=== PATIENT | female | born 1955 | race Caucasian/White ===

== ENCOUNTER 2017-12-17 13:26 | Inpatient (IN) | payer MEDICARE, MEDICAID, SELFPAY ==
[2017-12-17] VITALS (10 sets, daily range): BP systolic 115–159; BP diastolic 69–92; PULSE 86–107; RESP 16–24; TEMP 36.8–37.1; O2SAT 91–97; BMI 30.4; BMI 37.0
--- NOTE | 2017-12-17 13:50 | RAD_ITS ---
STUDY: X-RAY CHEST REASON FOR EXAM: Female, 62 years old. Cough. TECHNIQUE: Frontal and lateral views of the chest. COMPARISON: October 02, 2017 FINDINGS: There is stable low volume inspiration. There is no demonstrated pleural abnormality. There is borderline cardiomegaly unchanged. Normal mediastinum and emili. Normal visualized pulmonary arteries. Normal visualized aortic arch and descending thoracic aorta. Normal visualized thoracic spine. Normal visualized ribs, clavicles, and shoulders. There is no demonstrated abnormality of the visualized soft tissue structures of the upper abdomen. RAD/Chest PA and Lateral IMPRESSION: Stable appearance of the chest with no acute pathology. Electronically Signed: Escobar Valencia MD at 14:59 EDT , Service support ,
--- NOTE | 2017-12-17 13:52 | ED.VISSUMM ---
- ER Visit Summary Date of Service: 12/17/17 Chief Complaint: Fall History of Present Illness: The patient is a 62 F who presents after a fall today. Patient states she tripped and fell backwards. EMS reports that the patient was laying beside her walker that was tipped over. EMS also reports that there were blankets by her feet. It appeared as though the blankets caused her to trip and fall. Patient denies any head injury or loss of consciousness. Patient admits to some pain in her lower back. Patient denies any paresthesias or weakness. Patient denies any shortness of breath but admits to a cough. Patient denies any chest pain. Patient denies any nausea or vomiting. Patient states her back pain is worse with any movement. Physical Examination: Vital signs are stable. Patient is afebrile. Patient is in no acute distress. Patient is awake and alert. Patient answers questions appropriately. Oral mucosa is pink and moist. Neck is supple. Trachea is midline. There is no JVD or lymphadenopathy appreciated. Heart was regular rate and rhythm. Lungs showed slight expiratory wheezing. Respiratory effort was limited. There were no retractions noted. Abdomen is soft. Bowel sounds are normal. There is no tenderness noted. Extremities were intact. There is some mild tenderness over the ankles. There is no edema noted. Pedal pulses are equal bilaterally. Cranial nerves II through XII are intact. There are no focal motor or sensory deficits noted. There is tenderness over the lower lumbar spine and paraspinal muscles. There is no edema or ecchymosis. There is no bony crepitance or step-off. Patient was able to sit up to 90?. Test Results: X-rays the lumbar spine were obtained. There is no acute fracture or spondylolisthesis noted. Chest x-ray was obtained. There is no acute cardiopulmonary process noted. CBC, metabolic profile, and urinalysis were obtained and were essentially within normal limits. Emergency Department Course and Treatment: Patient felt better on reevaluation. Ambulation with a walker was attempted. Patient was unable to ambulate even with a walker. Nursing staff reports the patient does have some excoriations in her inguinal and perineal areas and is not able to care for herself at home. Disposition: Admit to hospital Impression: Inability to ambulate and care for herself This note was generated with [employer]ation software. It may contain incorrect words, spelling, and punctuation that were not noted in review of the chart prior to signing ED Disposition - Plan for ED Patient: Disposition: Acute Care Hospital [facility] Chief Complaint: Fall Diagnosis: Physical deconditioning Referrals: Care Physician,No Primary [NON-STAFF] -
--- NOTE | 2017-12-17 13:55 | RAD_ITS ---
STUDY: X-RAY - LUMBAR SPINE REASON FOR EXAM: Female, 62 years old. Low back pain TECHNIQUE: 3 view(s) of the lumbar spine were obtained. COMPARISON: None FINDINGS: Normal lumbar lordosis. There is no substantial scoliosis. There is a normal alignment of the vertebrae. Normal vertebral bodies and endplates. Normal disc space heights. There is mild diffuse facet sclerosis. The soft tissue structures are unremarkable. RAD/Lumbar Spine 2 or 3 Views IMPRESSION: No acute abnormality of the lumbar spine. Electronically Signed: Escobar Valencia MD at 14:59 EDT , Service support ,
[2017-12-17] MEDS: 0.9% Normal Saline 1,000 ML 1000 ML IV (14:14)
[2017-12-17] MEDS: Ipratropium/Albuterol Sulfate 3 ML AMPUL.NEB INHALATION (14:15)
[2017-12-17 14:16] LABS: Absolute Lymphocyte Count 0.52 X10^3/ul (0.83-4.51); Absolute Neutrophil Count 4.2 X10^3/uL (2.0-7.7); Basophil# 0.02 X10^3/uL; Basophil% 0.4 % (0-1); Eosinophil# 0.03 X10^3/uL; Eosinophils% 0.5 % (0-5); Hematocrit 45.5 % (37-47); Hemoglobin 14.7 g/dl (12.0-15.0); Lymphocyte # 0.52 X10^3/ul (4.0); Lymphocyte % 9.5 % (19-41); Mean Corp Hgb Conc 32.3 g/gl (32-36); Mean Corpuscular Hgb 29.4 pg (27.0-32.0); Mean Platelet Vol. 11.1 fl (6.2-12.0); Monocyte% 12.7 % (0-10); Neutrophil # 4.22 X10^3/uL (2.7-7.7); Neutrophil % 76.7 % (47-70); Platelet Count 191 K/mm3 (150-450); RBC Distribution Width CV 14.1 % (11.6-14.6); RBC Distribution Width SD 46.7 fl (35.1-43.9); White Blood Count 5.5 K/mm3 (4.4-11.0)
[2017-12-17 14:17] LABS: Differential Indicated SCAN CRITERIA MET; POSITIVE COUNT NO; POSITIVE DIFFERENTIAL YES; POSITIVE MORPHOLOGY NO
[2017-12-17 14:33] LABS: Anion Gap 9 (5-15); BUN 14 mg/dL (7-18); Calcium,Total 8.8 mg/dL (8.5-10.1); Chloride 106 mmol/L (98-107); Creatinine, Serum 0.78 mg/dL (0.55-1.02); EST Glomerular Filtration Rate 80 mL/min (>60); Est Glom Filt Rate - Afr Amer 97 mL/min (>60); Estimated Creatinine Clearance 77.37 ml/min; Glucose 107 mg/dL (74-106); Potassium 3.8 mmol/L (3.5-5.1); Sodium Level 141 mmol/L (136-145)
[2017-12-17 14:41] LABS: Bacteria 0 SEEN /hpf (None Seen); Mucous, Urine 0 SEEN /hpf (<or=2+); Red Blood Cells-Urine 0 SEEN /hpf (0-5); White Blood Cells 0 SEEN /hpf (0-5)
[2017-12-17 14:44] LABS: Color, Urine Yellow (Yellow); Glucose, Dipstick Normal (Normal); Ketone-Dipstick 50 mg/dl (Negative); Leukocyte Esterase-Dipstick 25 /ul (Negative); Nitrite-Dipstick Negative (Negative); Occult Blood-Urine 10 /ul (Negative); Protein-Dipstick 30 mg/dl (Negative); Urine Clarity Clear (Clear); Urine Urobilinogen 1 mg/dl (Normal)
[2017-12-17 14:46] LABS: Urine Bilirubin Dipstick 1 mg/dL (Negative)
[2017-12-17 14:54] LABS: Squamous Epithelial Cells - UA 0-5 SEEN /hpf (5-10)
--- NOTE | 2017-12-17 16:35 | HP.PCM_ITS ---
<Lee Wahl - Last Filed: 12/17/17 16:23> Problem List (1) Debility, unspecified Status: Acute (2) Dementia, vascular Status: Chronic (3) Hyperlipidemia Status: Chronic (4) COPD (chronic obstructive pulmonary disease) Status: Chronic (5) Obesity Status: Chronic History of Present Illness Date of Admission: 12/17/17 Chief Complaint: weakness, fall The patient is a 62 year old F with severe vascular dementia, hx of COPD, HLD, non-small cell lung CA in remission, who presents to the ER after falling at home. She is a very poor historian from the dementia and family is not present, so much of the history is obtained from the charts, and provider reports. She lives with her daughter at home. She fell today while walking with her walker. Supposedly the grand daughter found her and called EMS. She was found on the floor with the walker toppled over and blankets spread around her. She did not remember how she fell. She complains of right leg pain across the whole leg. She feels well otherwise. She is answers most questions inapropriately but does answer no to other symptoms such as chest pain, headache, sob, dizziness, lightheadedness however this is unreliable. It would appear she has been admitted with failure to thrive and has been discharged to halfway in the past, most recently in September of this year. The nursing staff attempted to ambulate the patient in the ED, she could stand with 2 assist but could not walk with assist. Call was attempted to patient's daughter who did not answer. [] Past Medical History Past Medical History (Chronic Problems): Chronic Problems Failure to thrive in adult (Chronic) Hyperlipidemia (Chronic) Overactive bladder (Chronic) Glaucoma (Chronic) COPD (chronic obstructive pulmonary disease) (Chronic) Non-small cell lung cancer (Chronic) treated by chemo and radiation considered cured.....had mets to the brain and the brain was irradiated Cerebral microvascular disease (Chronic) severe Dementia, vascular (Chronic) Obesity (Chronic) Nodule of right lung (Chronic) stable Allergies adhesive tape Allergy (Verified 12/17/17 14:06) Rash codeine Allergy (Verified 12/17/17 14:06) Nausea Penicillins Allergy (Verified 12/17/17 14:06) Rash Home Medications: Ambulatory Orders Medication Instructions Recorded Aspirin 81 mg PO DAILY 10/02/17 Donepezil HCl 10 mg PO QHS 10/02/17 Fluticasone/Vilanterol [Breo 1 each IH DAILY 10/02/17 Ellipta 200-25 Mcg INH] Latanoprost 0.005% [Xalatan 1 drop EACH EYE QHS 10/02/17 Opthalmic] Oxybutynin Chloride [Ditropan Xl] 5 mg PO DAILY 10/02/17 Potassium Chloride 20 meq PO BID 10/02/17 Pravastatin Sodium 40 mg PO DAILY 10/02/17 Surgical History: cholecystectomy, hysterectomy, - - port for chemo, possible resection of lung in 2001 when diagnosed with non small cell lung CA Psychiatric History: No pertinent psych hx [employer]ER [employer] UN[employer]ER History: No pertinent [employer] history Lives: With Family Smoking Status: Unknown if ever smoked Tobacco Use: Non-smoker Alcohol: None Drugs: None - *Family History Maternal History Items: Unknown - Patient unable to provide family health information. Paternal History Items: No pertinent history - Patient unable to provide family health information. Review of Systems Constitutional: Denies: Chills, Fever, Weight Change HEENT: Denies: Head Aches, Sinus Congestion, Sinus Drainage Cardiovascular: Denies: Chest Pain, Palpitations Respiratory: Denies: Cough, Shortness of breath at rest, Sputum production Gastrointestinal: Denies: Abdominal Pain, Nausea, Vomiting Genitourinary: Denies: Dysuria Musculoskeletal: Denies: Joint Pain, Joint Tenderness Skin: Denies: Rash, Wounds Neurological: Denies: Numbness, Tingling, Focal weakness Psychiatric: Denies: Anxiety, Depression, Homicidal Ideations, Suicidal Ideations Hematologic/ Lymphatic: Denies: Easy Bruising, Easy Bleeding Unable to obtain accurate/complete ROS d/t: ROS unreliable 2/2 patient severe dementia VTE Information - Inpt Only VTE Present on Admission: No VTE Mechan Device Prophylaxis: SCD's VTE Pharm Prophylaxis ordered?: Yes Patient Problems: Active and Suspected Problems Physical deconditioning (Acute) Debility, unspecified (Acute) - Physical Exam General: Alert, Oriented x3, Cooperative HEENT: Atraumatic, PERRLA, EOMI, Normocephalic Neck: Supple, No JVD, Negative Carotid Bruits Lungs: Clear to auscultation, Normal air movement Cardiovascular: Regular rate, No murmurs Abdomen: Bowel Sounds Present, Soft, Non Tender Extremities: No edema, Capillary Refill Less than 3 Seconds Skin: No rashes, No breakdown Musculoskeletal: No Tenderness to Palpation of Joints or Extremities, - - weakness BLE Neurological: Cranial nerves II-XII grossly intact Psych/Mental Status: Normal Affect, Appropriate Vital Signs Temp Pulse Resp BP Pulse Ox 98.5 F 93 19 H 147/80 H 93 12/17/17 13:27 12/17/17 16:10 12/17/17 16:10 12/17/17 16:10 12/17/17 16:10 Assessment/Plan Active and Suspected Problems Physical deconditioning (Acute) Debility, unspecified (Acute) 1. Debility/Weakness - last 2 admissions for weakness/failure to thrive. Was in Skilled but presented from home. She fell at home while ambulating with walker under unclear circumstances. Pt will be admitted and given supportive care and PTOT evals. Likely needs placed with plan for transition to assisted living or ECF. Blood work unremarkable, VSS, UA negative. XR lumbar spine negative. CXR neg. S/W consult for care planning. 2. Vascular Dementia - severe. Pt A/O to self only. 3. COPD - currently stable. prn aerosols, continue daily home aerosols 4. Hx Non-small cell lung CA - in remission s/p chemo/rads 5. HTN - trend 6. HLD - statin DVT ppx: lovenox DC planning: Needs placement, needs 24 hour care. This patient was seen by Lee Wahl PA-C under the supervision of Doctor Amos. <Cindy Trinidad - Last Filed: 12/18/17 07:35> History of Present Illness The patient is a 62 year old F [] Past Medical History Allergies adhesive tape Allergy (Verified 12/17/17 14:06) Rash codeine Allergy (Verified 12/17/17 14:06) Nausea Penicillins Allergy (Verified 12/17/17 14:06) Rash - Physical Exam Vital Signs Temp Pulse Resp BP Pulse Ox 99.6 F H 97 20 H 98/54 L 93 12/18/17 06:45 12/18/17 07:06 12/18/17 06:45 12/18/17 06:45 12/18/17 06:45 Oxygen Flow Rate (L/min) 2.5 Oxygen Delivery Method Nasal Cannula Weight: 97.8 kg Body Mass Index (BMI) 37.0 Intake and Output for Last 24 Hours 12/16/17 12/17/17 12/18/17 23:59 23:59 23:59 Intake Total 1240 / 1240 220 / 220 Balance 1240 / 1240 220 / 220 Microbiology Past 72 Hours 12/18/17 04:05 Influenza Types A,B Direct FA (TAYLOR) - Final Mucosa - Nose Laboratory Tests Past 24 Hrs 12/18/17 12/18/17 05:08 05:08 WBC 5.0 RBC 4.67 Hgb 13.4 Hct 43.1 MCV 92.3 MCH 28.7 MCHC 31.1 L RDW 14.4 RDW Differential 48.4 H Plt Count 173 MPV 10.9 Immature Gran % (Auto) 0.000 Neut % (Auto) 58.2 Lymph % (Auto) 25.9 Simpson % (Auto) 14.9 H Eos % (Auto) 0.8 Baso % (Auto) 0.2 Absolute Neuts (auto) 2.9 Absolute Lymphs (auto) 1.30 Total Counted Not Reportable Sodium 142 Potassium 3.6 Chloride 108 H Carbon Dioxide 24.0 Anion Gap 10 BUN 15 Creatinine 0.64 Estim Creat Clear Calc 80.72 Est GFR (MDRD) Af Amer 123 Est GFR (MDRD) Non-Af 101 BUN/Creatinine Ratio 23.6 H Glucose 96 Calcium 8.5 Assessment/Plan Patient seen and examined with Lee MYERS. Patient comes in after a fall and found to be very weak and could not walk. EMS found her on the dining room floor, inwetween her walker with blankets tangled around her feet. Denies any complains prior. Says she felt weak, had not eaten much the morning. Attempted calling daughter, does not answer. Patient's last 3 admissions have been for similar reasons, placed in halfway facility. Patient's vitals, labs, imaging are unremarkable but physical exam shows weakness 3-4/5 in both lower extremities proximal thigh muscles. Will admit patient, PT/OT to evaluate, case management to assist in discharge planning. Code Visit OBSV E&M: 39725 Initial observation care L3
--- NOTE | 2017-12-17 16:41 | PCA ---
Placed copy of HCPOA papers on pt chart under Advanced Directives.
[2017-12-17 17:14] LABS: Thyroid Stim Hormone (TSH) 1.88 uIU/mL (0.358-3.74)
[2017-12-17] MEDS: Budesonide Respules 0.5 MG/2 ML AMPUL.NEB. INHALATION (18:44)
[2017-12-17] MEDS: Albuterol 2.5 MG/3 ML VIAL.NEB. INHALATION (18:44)
--- NOTE | 2017-12-17 20:03 | NURSING ---
Patient refused to have VS taken at this time, will attempt later.
[2017-12-17] MEDS: Donepezil HCl 10 MG Tablet PO (21:49)
[2017-12-17] MEDS: Latanoprost 0.005% 1 Bottle 1 DRP EACH EYE (21:49)
[2017-12-18] VITALS (35 sets, daily range): BP systolic 80–122; BP diastolic 50–81; PULSE 71–102; RESP 16–28; TEMP 36.4–37.8; O2SAT 91–99
--- NOTE | 2017-12-18 00:34 | NURSING ---
Daughter called in to check in on patient and update given.
[2017-12-18] MEDS: Albuterol 2.5 MG/3 ML VIAL.NEB. INHALATION ×2 (04:01→07:18)
[2017-12-18 06:36] LABS: Absolute Neutrophil Count 2.9 X10^3/uL (2.0-7.7); Basophil# 0.01 X10^3/uL; Basophil% 0.2 % (0-1); Eosinophil# 0.04 X10^3/uL; Eosinophils% 0.8 % (0-5); Hematocrit 43.1 % (37-47); Hemoglobin 13.4 g/dl (12.0-15.0); Lymphocyte % 25.9 % (19-41); Mean Corp Hgb Conc 31.1 g/gl (32-36); Mean Corpuscular Hgb 28.7 pg (27.0-32.0); Mean Corpuscular Volume 92.3 fL (81-99); Mean Platelet Vol. 10.9 fl (6.2-12.0); Monocyte# 0.75 X10^3/uL; Monocyte% 14.9 % (0-10); Neutrophil # 2.92 X10^3/uL (2.7-7.7); Neutrophil % 58.2 % (47-70); Platelet Count 173 K/mm3 (150-450); RBC Distribution Width CV 14.4 % (11.6-14.6); RBC Distribution Width SD 48.4 fl (35.1-43.9); Red Blood Count 4.67 M/mm3 (4.2-5.4)
[2017-12-18 06:47] LABS: POSITIVE COUNT NO; POSITIVE DIFFERENTIAL NO; POSITIVE MORPHOLOGY NO
[2017-12-18 06:51] LABS: Anion Gap 10 (5-15); BUN 15 mg/dL (7-18); BUN/Creat Ratio 23.6 RATIO (10-20); Calcium,Total 8.5 mg/dL (8.5-10.1); Chloride 108 mmol/L (98-107); Creatinine, Serum 0.64 mg/dL (0.55-1.02); EST Glomerular Filtration Rate 101 mL/min (>60); Est Glom Filt Rate - Afr Amer 123 mL/min (>60); Estimated Creatinine Clearance 80.72 ml/min; Glucose 96 mg/dL (74-106); Potassium 3.6 mmol/L (3.5-5.1); Sodium Level 142 mmol/L (136-145)
[2017-12-18] MEDS: Budesonide Respules 0.5 MG/2 ML AMPUL.NEB. INHALATION ×2 (07:18→18:35)
[2017-12-18] MEDS: Aspirin 81 MG TAB.CHEW PO (07:55)
--- NOTE | 2017-12-18 08:26 | RAD_ITS ---
STUDY: X-RAY CHEST REASON FOR EXAM: Female, 62 years old. Shortness of breath TECHNIQUE: Single AP portable view of the chest. COMPARISON: 12/17/2017. 12/09/2016. FINDINGS: There are superimposed monitor leads. The lungs are clear and hypoexpanded. There is no demonstrated pleural abnormality. Normal size heart. Stable bilateral prominent proximal pulmonary vessels and emili. Normal visualized pulmonary arteries. Normal visualized aortic arch and descending thoracic aorta. Normal visualized thoracic spine. Normal visualized ribs, clavicles, and shoulders. There is no demonstrated abnormality of the visualized soft tissue structures of the upper abdomen. RAD/Chest 1 View (Portable) IMPRESSION: No pulmonary edema, congestive heart failure or confluent pneumonia. Stable hilar/vascular prominence. Electronically Signed: Sophie Mitchell MD at 9:16 EDT , Service support ,
[2017-12-18] MEDS: 0.9% NaCl Peripheral Flush Adult/Peds IV ×2 (08:37→18:52)
[2017-12-18] MEDS: 0.9% Normal Saline 1,000 ML 75 ML IV (08:50)
--- NOTE | 2017-12-18 09:25 | NURSING ---
Voice message left for Kiley Wasserman requesting return call and notifying that it is NOT an emergency.
--- NOTE | 2017-12-18 09:40 | NURSING ---
Pt's daughter, Luli, returns call. Update provided to daughter and inquired about possible removal of ring on left hand due to swelling. Daughter provides okay to do so if needed. Luli reports that she will be up to visit her Mom later this afternoon.
--- NOTE | 2017-12-18 10:05 | EKG12_ITS ---
Test Reason : TACHY Blood Pressure : / mmHG Vent. Rate : 090 BPM Atrial Rate : 090 BPM P-R Int : 162 ms QRS Dur : 090 ms QT Int : 358 ms P-R-T Axes : 047 081 073 degrees QTc Int : 437 ms Normal sinus rhythm Low voltage QRS Borderline ECG Confirmed by OAR WATSON, LIBBY ([id number]), editorial manager HERMAN PATEL ([id number]) on 12/27/2017 1:33:40 PM Referred By: CAROL Confirmed By:LIBBY PAYAN MD
[2017-12-18] MEDS: Enoxaparin 40 MG/0.4 ML Syringe SC (10:14)
[2017-12-18] MEDS: Pravastatin 40 MG Tablet PO (10:15)
[2017-12-18] MEDS: Nystatin Ointment 1 APPLIC TOPICAL ×2 (10:15→22:11)
--- NOTE | 2017-12-18 10:23 | NURSING ---
Ring removed using surgi ron. Pt. tolerates fair.
--- NOTE | 2017-12-18 10:40 | NURSING ---
cps notified of stat EKG order. Lab informed of BNP order, requested they come collect it STAT
[2017-12-18] MEDS: Ipratropium/Albuterol Sulfate 3 ML AMPUL.NEB INHALATION ×4 (11:15→23:27)
[2017-12-18] MEDS: 0.9% Normal Saline 1,000 ML 999 ML IV (11:27)
[2017-12-18 11:41] LABS: Lactic Acid 0.8 mmol/L (0.4-2.0)
[2017-12-18] MEDS: NYSTATIN 500,000 UNIT/5 ML UDC 500000 UNIT PO ×2 (11:41→22:12)
[2017-12-18] MEDS: 0.9% Normal Saline 1,000 ML 125 ML IV ×2 (12:22→18:51)
--- NOTE | 2017-12-18 12:46 | PCM.PROGNOTE ---
<Lee Wahl - Last Filed: 12/18/17 12:46> Patient Problems: Active and Suspected Problems Physical deconditioning (Acute) Debility, unspecified (Acute) Subjective: Pt still very confused this am, although pleasant. She is drowsy but rousable. She denies SOB, cough, CP, dizziness, LH, abdominal pain, dysuria. She had 2 normal BM last night. Her BP has been poor but is responding to IV fluids. She had some puffy edema of the hands. No swelling of the legs. - Physical Exam General: Alert, Cooperative, - - a/ox1 HEENT: Atraumatic, PERRLA, EOMI, Normocephalic Neck: Supple, No JVD, Negative Carotid Bruits Lungs: Normal air movement, Rhonchi Cardiovascular: Regular rate, No murmurs Abdomen: Bowel Sounds Present, Soft, Non Tender Extremities: No edema, Capillary Refill Less than 3 Seconds, - - hands with puffy edema. Skin: No rashes, No breakdown Musculoskeletal: No Tenderness to Palpation of Joints or Extremities Neurological: Cranial nerves II-XII grossly intact Psych/Mental Status: Normal Affect, Appropriate, Alert and oriented to time, place, person, mood and affect Vital Signs Temp Pulse Resp BP Pulse Ox 98.7 F 93 26 H 105/69 98 12/18/17 12:16 12/18/17 12:16 12/18/17 12:16 12/18/17 12:16 12/18/17 12:16 Oxygen Flow Rate (L/min) 2 Oxygen Delivery Method Nasal Cannula Weight: 97.8 kg Intake and Output for Last 24 Hours 12/16/17 12/17/17 12/18/17 23:59 23:59 23:59 Intake Total 1641 / 1861 Output Total 50 / 50 Balance 1591 / 1811 Laboratory Tests Past 24 Hrs 12/18/17 12/18/17 10:52 10:52 Lactic Acid 0.8 B-Natriuretic Peptide 26.0 Medical Necessity - Tobacco Use Smoking Status: Unknown if ever smoked Tobacco Use: Non-smoker Assessment/Plan Active and Suspected Problems Physical deconditioning (Acute) Debility, unspecified (Acute) 1. Debility/Weakness - last 2 admissions for weakness/failure to thrive. Was in Skilled but presented from home. She fell at home while ambulating with walker under unclear circumstances. Pt will be admitted and given supportive care and PTOT evals. Likely needs placed with plan for transition to assisted living or ECF. Blood work unremarkable, VSS, UA negative. XR lumbar spine negative. CXR neg. S/W consult for care planning. 2. Hypotension - improved with 1 liter bolus fluids. Increased IV fluid rate. She now has + SIRS but no sign of infection. She has negative CXR x 2, negative urine, negative viral panel, no leukocytosis, no diarrhea. Core temp 100.0, tachy, tachypneic. EKG low voltage but otherwise unremarkable. No events on Tele. Check BNP. Lactic acid is negative. TSH normal. Blood cultures pending. 2. Vascular Dementia - severe. Pt A/O to self only. 3. COPD - possibly acute exacerbation exacerbation although she denies SOB. Her O2 requirement has increased and she has rhonchi. Started duonebs, pulmicort. 4. Hx Non-small cell lung CA - in remission s/p chemo/rads 5. HTN - trend 6. HLD - statin DVT ppx: lovenox DC planning: Needs placement This patient was seen by Lee Wahl PA-C under the supervision of Doctor Trinidad. <Cindy Trinidad - Last Filed: 12/18/17 15:46> - Physical Exam Vital Signs Temp Pulse Resp BP Pulse Ox 98.6 F 81 18 103/65 93 12/18/17 14:00 12/18/17 14:53 12/18/17 14:53 12/18/17 14:30 12/18/17 14:53 Oxygen Flow Rate (L/min) 2 Oxygen Delivery Method Room Air Weight: 97.8 kg Intake and Output for Last 24 Hours 12/16/17 12/17/17 12/18/17 23:59 23:59 23:59 Intake Total 1641 / 1861 Output Total 50 / 50 Balance 1591 / 1811 Microbiology Past 72 Hours 12/18/17 12:00 C. difficile DNA Amplification - Final Stool Laboratory Tests Past 24 Hrs 12/18/17 12/18/17 10:52 10:52 Lactic Acid 0.8 B-Natriuretic Peptide 26.0 Assessment/Plan Patient was seen and examined independently and again with physician personal banking assistant, Lee Wahl. Noted that overnight she had episodes of fever, had erythema of the extremities with increased differential warmth on touch. Oral temperatures have been normal. Patient is a poor historian, denies any dizziness or palpitations or chest pain. Vitals showed relative hypotension. She later became hypotension later in the morning, her blood pressure was reported as 87/60mmHg despite 1 L fluid bolus. Of note is that she has increased work of breathing. Labs reviewed, no leukocytosis, chest x-ray ordered and showed atelectasis. Lactic acid was 0.8. No t clear if that is cellulitis, will monitor. We will get blood cultures, and start patient on empiric aztreonam, because patient has penicillin allergy. Infectious disease will be consulted. Patient will be monitored overnight in the ICU to make sure she is no more hypotensive. Continue on IV fluids of 125cc/hour. Of note is that a 2D echo in 2016 showed normal EF. Will repeat 2D echo. Consult with sounds 1 unless you will recall that she A/P: Patient is 1. SIRS, not yet sepsis as no source of infection(fever, tachycardia, tachypnea) 2. Hypotension, unclear etiology, likely related to sepsis, less likely cardiac, will get 2d-echo, last echo in 2016 showed normal EF. 3. Acute hypoxic respiratory insufficiency, on 2L oxygen, not on oxygen at home, secondary to atelectasis, will add incentive spirometer, continue on duonebs 4. Debility 5. Vascular dementia 6. Hyperlipidemia 7. H/o nonsmallcell CA, in remission Code Visit Inpatient E&M: 29996 Subs Hosp L3
--- NOTE | 2017-12-18 13:20 | NURSING ---
aware per antoni MYERS he talked w/ Dr. Palma regarding low BP and VSA [id number]. orders to transfer to icu. primary RN and marble installer supervisor notified.
--- NOTE | 2017-12-18 13:21 | NURSING ---
Per charge nurseRuth, patient to transfer to ICU for hypotension.
--- NOTE | 2017-12-18 13:25 | NURSING ---
Nurse leaves voice message for daughter, Kiley, notifying of difficulty getting blood pressure to stay within normal range and plan to transfer to ICU bed 2 for closer monitoring. Call back number [phone] provided.
--- NOTE | 2017-12-18 13:50 | ECHOD_ITS ---
Reason For Study: DYSPNEA Procedure This was a 2D Doppler, Color Flow transthoracic echocardiogram. The study was technically difficult. Exam performed portable in ICU/CCU. Left Ventricle Normal LV size. Mild concentric left ventricular hypertrophy. Left ventricular systolic function is normal. The estimated ejection fraction is 70 %. No regional wall motion abnormalities noted. Right Ventricle Normal RV size. Normal systolic function. Atria Normal left atrium. Normal right atrium. Mitral Valve Normal mitral valve. Tricuspid Valve Normal tricuspid valve. Mild (1+) tricuspid valve insufficiency. Pulmonary artery systolic pressure is 46 mmHg. Aortic Valve Normal aortic valve. Pulmonic Valve Normal pulmonic valve. Great Vessels Normal aortic root. The pulmonary artery is normal size. Normal inferior vena cava. Pericardium/Pleural Trivial pericardial effusion. MMode/2D Measurements & Calculations LVIDd: 4.2 cm IVSd: 1.4 cm Ao root diam: 3.0 cm LVIDs: 2.8 cm LVPWd: 1.2 cm LA dimension: 4.0 cm RVDd: 3.3 cm FS: 33.3 % LAV(MOD-bp): 41.0 ml EDV(MOD-sp4): 94.9 ml EDV(MOD-sp2): 62.7 ml LAV(MOD-bp) Indexed: 20.3 ml/m2 ESV(MOD-sp4): 30.6 ml EF(MOD-sp2): 70.1 % LAV(MOD-sp2): 36.4 ml EF(MOD-sp4): 67.7 % LAV(MOD-sp4): 44.5 ml SV(MOD-sp4): 64.3 ml SV(MOD-sp2): 43.9 ml LA A4 area: 16.4 cm2 RA A4 area: 15.3 cm2 Doppler Measurements & Calculations MV E max myrtle: 99.1 cm/sec Ao V2 max: 132.7 cm/sec LV V1 max: 120.1 cm/sec MV A max myrtle: 117.0 cm/sec Ao max P.1 mmHg LV V1 max P.8 mmHg MV E/A: 0.85 TR max myrtle: 320.7 cm/sec TR max P.2 mmHg Interpretation Summary Normal LV size. Mild concentric left ventricular hypertrophy. Left ventricular systolic function is normal. The estimated ejection fraction is 70 %. Mild (1+) tricuspid valve insufficiency. Pulmonary artery systolic pressure is 46 mmHg. Trivial pericardial effusion. Ordering Physician: Cindy Trinidad Referring Physician: SHEEBA VERDE Performed By: Linn Liang, SHI, RVT
[2017-12-18] MEDS: Donepezil HCl 10 MG Tablet PO (22:10)
[2017-12-18] MEDS: Latanoprost 0.005% 1 Bottle 1 DRP EACH EYE (22:12)
[2017-12-19] VITALS (24 sets, daily range): BP systolic 98–125; BP diastolic 7–93; PULSE 65–84; RESP 16–25; TEMP 36.3–37.1; O2SAT 93–98
[2017-12-19] MEDS: 0.9% NaCl Peripheral Flush Adult/Peds IV ×2 (04:22→10:36)
[2017-12-19 04:33] LABS: Absolute Lymphocyte Count 1.19 X10^3/ul (0.83-4.51); Basophil# 0.01 X10^3/uL; Basophil% 0.2 % (0-1); Eosinophil# 0.15 X10^3/uL; Eosinophils% 3.7 % (0-5); Hematocrit 38.8 % (37-47); Hemoglobin 12.3 g/dl (12.0-15.0); Lymphocyte # 1.19 X10^3/ul (4.0); Lymphocyte % 29.6 % (19-41); Mean Corp Hgb Conc 31.7 g/gl (32-36); Mean Corpuscular Hgb 29.6 pg (27.0-32.0); Mean Corpuscular Volume 93.5 fL (81-99); Mean Platelet Vol. 10.4 fl (6.2-12.0); Monocyte# 0.65 X10^3/uL; Monocyte% 16.2 % (0-10); Neutrophil # 2.01 X10^3/uL (2.7-7.7); Neutrophil % 50.1 % (47-70); Platelet Count 150 K/mm3 (150-450); RBC Distribution Width CV 14.6 % (11.6-14.6); RBC Distribution Width SD 48.3 fl (35.1-43.9); Red Blood Count 4.15 M/mm3 (4.2-5.4)
[2017-12-19 04:46] LABS: Anion Gap 8 (5-15); BUN 12 mg/dL (7-18); BUN/Creat Ratio 25.2 RATIO (10-20); Chloride 109 mmol/L (98-107); Creatinine, Serum 0.48 mg/dL (0.55-1.02); EST Glomerular Filtration Rate 141 mL/min (>60); Est Glom Filt Rate - Afr Amer 171 mL/min (>60); Estimated Creatinine Clearance 107.63 ml/min; Glucose 86 mg/dL (74-106); POSITIVE COUNT NO; POSITIVE DIFFERENTIAL NO; POSITIVE MORPHOLOGY NO; Potassium 4.2 mmol/L (3.5-5.1); Sodium Level 144 mmol/L (136-145)
--- NOTE | 2017-12-19 06:18 | CT_ITS ---
STUDY: CT CHEST WITH CONTRAST REASON FOR EXAM: Female, 62 years old. Cough and hypotension RADIATION DOSAGE (If Supplied By Facility): CTDIvol = ( 10.95 ) mGy, DLP = ( 720.41 ) mGycm TECHNIQUE: Transaxial imaging was performed following intravenous administration of 100mL ml of Isovue 300 contrast material. Multiplanar coronal and sagittal images were reformatted. Individualized dose optimization techniques were used for this CT. COMPARISON: 06/02/2016 FINDINGS: The lungs are expanded normally. No emphysematous change noted. There is a stable right suprahilar mass causing postobstructive atelectasis best seen on axial image 43 measuring 2.36 x 1.84 cm. There are some associated enlarged mediastinal lymph nodes and narrowing of the right mainstem bronchus. There are small free-flowing pericardial effusions and dependent atelectasis in the lung bases. Normal heart and pericardium. There are calcifications of the coronary arteries. Normal enhanced pulmonary arteries. Normal aorta arch and descending thoracic aorta. There are multi-level degenerative changes of the thoracic spine. Limited cuts through the upper abdomen show fatty infiltration of the liver, stable enlarged left lobe of liver extending over the midline and on top of the spleen. There is been previous cholecystectomy. CT/Chest WITH Contrast IMPRESSION: Stable 2.3 x 1.8 cm right suprahilar nodule causing postobstructive atelectasis. Previously noted mediastinal lymph nodes have increased in size since the previous study, now measuring up to 1.3 cm in short axis dimension Small free-flowing bilateral pleural effusions Degenerative bony changes Fatty liver Electronically Signed: Eric Vanegas MD at 10:47 EDT , Service support ,
[2017-12-19] MEDS: Ipratropium/Albuterol Sulfate 3 ML AMPUL.NEB INHALATION ×4 (06:41→23:06)
[2017-12-19] MEDS: Budesonide Respules 0.5 MG/2 ML AMPUL.NEB. INHALATION ×2 (06:42→18:40)
--- NOTE | 2017-12-19 09:48 | CASEMGMT ---
JULIUS CM chart review: Pt presented to ER after falling @ home. Poor historian due to dementia. Lives with daughter, Had Passport services documented on last admission in September, but was dc'd to [facility]. Now on 2L NC, hypotensive 81/50 on admission- NS 1L bolus given, then 125 ml/hr. PT/OT is ordered. PCP: Dr. Jaramillo Pharmacy: [facility] consult: Pt with hx of Passport services, self care concerns @ home. Evelin PINTON RN ACM
--- NOTE | 2017-12-19 10:10 | PCM.CON.CC ---
Problem List (1) Physical deconditioning Status: Acute (2) Debility, unspecified Status: Acute (3) Failure to thrive in adult Status: Chronic (4) Hyperlipidemia Status: Chronic (5) Overactive bladder Status: Chronic (6) Glaucoma Status: Chronic (7) COPD (chronic obstructive pulmonary disease) Status: Chronic Qualifiers: (8) Non-small cell lung cancer Status: Chronic Qualifiers: Comment: treated by chemo and radiation considered cured.....had mets to the brain and the brain was irradiated (9) Cerebral microvascular disease Status: Chronic Comment: severe (10) Dementia, vascular Status: Chronic Qualifiers: (11) Obesity Status: Chronic (12) Nodule of right lung Status: Chronic Comment: stable Reason for Consult Date of Consultation: 12/19/17 Reason for Consultation: Hypotension History of Present Illness: The patient is a 62 year old F, with past medical history listed below, who originally presented to [facility] on 12/17/2017 secondary to fall. Patient was brought in by EMS and reportedly had tripped and fallen backwards. Patient was found next to her walker with blankets by her feet. Patient had reported no loss of consciousness, paresthesia, weakness or dyspnea. Patient did report a cough, but this was not associated with fever, nausea or vomiting. Patient did report back pain. Workup was relatively unremarkable, but patient was not able to ambulate with a walker in the ER, so was admitted to the hospital for further evaluation. Yesterday, patient was noted to be confused, but arousable. Patient's blood pressure had been on the lower side and patient was given IV fluids with some improvement. This persisted overnight and patient was transferred to the intensive care unit for further monitoring. While in the intensive care unit, patient has remained minimal nasal cannula oxygen. Blood pressure has improved. Patient had 2 chest x-ray showing only hilar lymphadenopathy. Cultures have been negative. C. difficile was obtained showing no toxin. EKG was unremarkable. Lactic acid was within normal limits. Patient does have a history of COPD and non-small cell lung cancer treated with chemo and radiation. Patient has had multiple recent admissions for weakness/failure to thrive and was discharged to skilled care. Patient is unable to provide a reliable review of systems at this time. Past Medical History Past Medical History (Chronic Problems): Chronic Problems Failure to thrive in adult (Chronic) Hyperlipidemia (Chronic) Overactive bladder (Chronic) Glaucoma (Chronic) COPD (chronic obstructive pulmonary disease) (Chronic) Non-small cell lung cancer (Chronic) treated by chemo and radiation considered cured.....had mets to the brain and the brain was irradiated Cerebral microvascular disease (Chronic) severe Dementia, vascular (Chronic) Obesity (Chronic) Nodule of right lung (Chronic) stable Allergies adhesive tape Allergy (Verified 12/17/17 14:06) Rash codeine Allergy (Verified 12/17/17 14:06) Nausea Penicillins Allergy (Verified 12/17/17 14:06) Rash Home Medications: Ambulatory Orders Medication Instructions Recorded Aspirin 81 mg PO DAILY 10/02/17 Donepezil HCl 10 mg PO QHS 10/02/17 Fluticasone/Vilanterol [Breo 1 each IH DAILY 10/02/17 Ellipta 200-25 Mcg INH] Latanoprost 0.005% [Xalatan 1 drop EACH EYE QHS 10/02/17 Opthalmic] Oxybutynin Chloride [Ditropan Xl] 5 mg PO DAILY 10/02/17 Potassium Chloride 20 meq PO BID 10/02/17 Pravastatin Sodium 40 mg PO DAILY 10/02/17 Surgical History: cholecystectomy, hysterectomy, - - port for chemo, possible resection of lung in 2001 when diagnosed with non small cell lung CA Psychiatric History: No pertinent psych hx 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 Paternal History Items: No pertinent history - Patient unable to provide family health information. Review of Systems Unable to obtain accurate/complete ROS d/t: See HPI Patient Problems: Active and Suspected Problems Physical deconditioning (Acute) Debility, unspecified (Acute) Objective: All imaging was personally reviewed. CT scan of the chest shows no obvious infiltrate, but some right middle lobe atelectasis. Airways appear to be collapsible such as with bronchomalacia. There is a 6 mm possible early infiltrate versus round atelectasis in the left lower lobe. - Physical Exam General: Alert, Cooperative, Confused, Disoriented, - - Speaking in full sentences on 2 L nasal cannula HEENT: Atraumatic, PERRLA, EOMI, Normocephalic, - - No scleral icterus or injection noted. Oral: Moist Mucosa, No Gingival or Mucosal Lesions/ Ulcerations Neck: Supple, No JVD, No Nodes, Trachea Midline Lungs: No rhonchi, No wheeze, No rales, Diminished, - - Symmetric expansion. No dullness to percussion. Cardiovascular: Regular rate, Regular Rhythm, Normal S1, Normal S2, No murmurs, No rub noted, No Gallop Abdomen: Bowel Sounds Present, Soft, Non Tender, Non-Distended, Obese Extremities: No clubbing, No cyanosis, No edema, Capillary Refill Less than 3 Seconds Skin: No rashes, No breakdown Musculoskeletal: No Tenderness to Palpation of Joints or Extremities Lymphatic: No Cervical, Supraclavicular, or Inguinal Adenopathy Neurological: Cranial nerves II-XII grossly intact, Neuro grossly intact, Motor Exam 5/5 strength throughout Psych/Mental Status: Appropriate, Flat Affect Vital Signs Temp Pulse Resp BP Pulse Ox 36.3 C L 71 22 H 118/7 L 95 12/19/17 07:50 12/19/17 07:06 12/19/17 07:00 12/19/17 07:00 12/19/17 07:00 Oxygen Flow Rate (L/min) 2 Oxygen Delivery Method Nasal Cannula Weight: 99.7 kg Intake and Output for Last 24 Hours 12/17/17 12/18/17 12/19/17 23:59 23:59 23:59 Intake Total 3584 / 3804 Output Total 400 / 400 250 / 250 Balance 3184 / 3404 -250 / -250 Microbiology Past 72 Hours 12/18/17 17:00 Group A Streptococcus Rapid Screen - Preliminary Mucosa - Throat 12/18/17 12:00 C. difficile DNA Amplification - Final Stool Laboratory Tests Past 24 Hrs 12/18/17 12/18/17 12/19/17 10:52 10:52 04:20 WBC 4.0 L RBC 4.15 L Hgb 12.3 Hct 38.8 MCV 93.5 MCH 29.6 MCHC 31.7 L RDW 14.6 RDW Differential 48.3 H Plt Count 150 MPV 10.4 Immature Gran % (Auto) 0.200 Neut % (Auto) 50.1 Lymph % (Auto) 29.6 Tate % (Auto) 16.2 H Eos % (Auto) 3.7 Baso % (Auto) 0.2 Absolute Neuts (auto) 2.0 Absolute Lymphs (auto) 1.19 Total Counted Not Reportable Sodium Potassium Chloride Carbon Dioxide Anion Gap BUN Creatinine Estim Creat Clear Calc Est GFR (MDRD) Af Amer Est GFR (MDRD) Non-Af BUN/Creatinine Ratio Glucose Lactic Acid 0.8 Calcium B-Natriuretic Peptide 26.0 12/19/17 04:20 WBC RBC Hgb Hct MCV MCH MCHC RDW RDW Differential Plt Count MPV Immature Gran % (Auto) Neut % (Auto) Lymph % (Auto) Tate % (Auto) Eos % (Auto) Baso % (Auto) Absolute Neuts (auto) Absolute Lymphs (auto) Total Counted Sodium 144 Potassium 4.2 Chloride 109 H Carbon Dioxide 27.0 Anion Gap 8 BUN 12 Creatinine 0.48 L Estim Creat Clear Calc 107.63 Est GFR (MDRD) Af Amer 171 Est GFR (MDRD) Non-Af 141 BUN/Creatinine Ratio 25.2 H Glucose 86 Lactic Acid Calcium 8.0 L B-Natriuretic Peptide Clinical Impression(s) from Imaging Studies Chest X-Ray 12/17/17 13:50 IMPRESSION: Stable appearance of the chest with no acute pathology. Electronically Signed: Escobar Valencia MD at 14:59 EDT , Service support , Lumbar Spine X-Ray 12/17/17 13:55 IMPRESSION: No acute abnormality of the lumbar spine. Electronically Signed: Escobar Valencia MD at 14:59 EDT , Service support , Chest X-Ray 12/18/17 08:26 IMPRESSION: No pulmonary edema, congestive heart failure or confluent pneumonia. Stable hilar/vascular prominence. Electronically Signed: Sophie Mitchell MD at 9:16 EDT , Service support , Assessment/Plan Active and Suspected Problems Physical deconditioning (Acute) Debility, unspecified (Acute) RECOMMENDATIONS: 1. Continue with Pulmicort and bronchodilators 2. Consider cortisol stimulation test as an outpatient 3. Consider orthostatic blood pressures 4. Okay to transfer from the intensive care unit IMPRESSIONS: 1. Hypotension Unclear etiology at this time. Patient does have baseline of vascular dementia and history is very unclear at this time. Patient has been responsive to IV fluids at this time. Patient's blood count has improved with IV hydration, along with renal function. Patient's TSH is within normal limits. Patient does not have any leukocytosis or signs of infectious etiology at this time. Patient may benefit from a cortisol stimulation test as an outpatient. Consider obtaining orthostatic blood pressures. Likely okay to transfer from the intensive care unit. 2. COPD/history of non-small cell lung cancer Patient does not appear to be in any acute exacerbation at this time. Do agree with continuing with Pulmicort and aerosol therapy as a substitution for home inhaler use. Infectious workup has been unremarkable to this point including a viral respiratory panel, influenza and kamara culture. 3. Vascular dementia/obesity/glaucoma/hyperlipidemia/debility/FTT Complicates care, management, recovery and prognosis. Likely okay to continue with baseline medications. Defer to hospitalist for further management. Code Visit Inpatient E&M: 65614 Init Hosp L3
--- NOTE | 2017-12-19 10:26 | CON.PCM_ITS ---
Problem List (1) Physical deconditioning Status: Acute (2) Debility, unspecified Status: Acute (3) Failure to thrive in adult Status: Chronic (4) Hyperlipidemia Status: Chronic (5) Overactive bladder Status: Chronic (6) Glaucoma Status: Chronic (7) COPD (chronic obstructive pulmonary disease) Status: Chronic Qualifiers: (8) Non-small cell lung cancer Status: Chronic Qualifiers: Comment: treated by chemo and radiation considered cured.....had mets to the brain and the brain was irradiated (9) Cerebral microvascular disease Status: Chronic Comment: severe (10) Dementia, vascular Status: Chronic Qualifiers: (11) Obesity Status: Chronic (12) Nodule of right lung Status: Chronic Comment: stable Reason for Consult Date of Consultation: 12/19/17 Reason for Consultation: Hypotension History of Present Illness: The patient is a 62 year old F, with past medical history listed below, who originally presented to [facility] on 12/17/2017 secondary to fall. Patient was brought in by EMS and reportedly had tripped and fallen backwards. Patient was found next to her walker with blankets by her feet. Patient had reported no loss of consciousness, paresthesia, weakness or dyspnea. Patient did report a cough, but this was not associated with fever, nausea or vomiting. Patient did report back pain. Workup was relatively unremarkable, but patient was not able to ambulate with a walker in the ER, so was admitted to the hospital for further evaluation. Yesterday, patient was noted to be confused, but arousable. Patient's blood pressure had been on the lower side and patient was given IV fluids with some improvement. This persisted overnight and patient was transferred to the intensive care unit for further monitoring. While in the intensive care unit, patient has remained minimal nasal cannula oxygen. Blood pressure has improved. Patient had 2 chest x-ray showing only hilar lymphadenopathy. Cultures have been negative. C. difficile was obtained showing no toxin. EKG was unremarkable. Lactic acid was within normal limits. Patient does have a history of COPD and non-small cell lung cancer treated with chemo and radiation. Patient has had multiple recent admissions for weakness/ failure to thrive and was discharged to skilled care. Patient is unable to provide a reliable review of systems at this time. Past Medical History Past Medical History (Chronic Problems): Chronic Problems Failure to thrive in adult (Chronic) Hyperlipidemia (Chronic) Overactive bladder (Chronic) Glaucoma (Chronic) COPD (chronic obstructive pulmonary disease) (Chronic) Non-small cell lung cancer (Chronic) treated by chemo and radiation considered cured.....had mets to the brain and the brain was irradiated Cerebral microvascular disease (Chronic) severe Dementia, vascular (Chronic) Obesity (Chronic) Nodule of right lung (Chronic) stable Allergies adhesive tape Allergy (Verified 12/17/17 14:06) Rash codeine Allergy (Verified 12/17/17 14:06) Nausea Penicillins Allergy (Verified 12/17/17 14:06) Rash Home Medications: Ambulatory Orders Medication Instructions Recorded Aspirin 81 mg PO DAILY 10/02/17 Donepezil HCl 10 mg PO QHS 10/02/17 Fluticasone/Vilanterol [Breo 1 each IH DAILY 10/02/17 Ellipta 200-25 Mcg INH] Latanoprost 0.005% [Xalatan 1 drop EACH EYE QHS 10/02/17 Opthalmic] Oxybutynin Chloride [Ditropan Xl] 5 mg PO DAILY 10/02/17 Potassium Chloride 20 meq PO BID 10/02/17 Pravastatin Sodium 40 mg PO DAILY 10/02/17 Surgical History: cholecystectomy, hysterectomy, - - port for chemo, possible resection of lung in 2001 when diagnosed with non small cell lung CA Psychiatric History: No pertinent psych hx 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 Paternal History Items: No pertinent history - Patient unable to provide family health information. Review of Systems Unable to obtain accurate/complete ROS d/t: See HPI Patient Problems: Active and Suspected Problems Physical deconditioning (Acute) Debility, unspecified (Acute) Objective: All imaging was personally reviewed. CT scan of the chest shows no obvious infiltrate, but some right middle lobe atelectasis. Airways appear to be collapsible such as with bronchomalacia. There is a 6 mm possible early infiltrate versus round atelectasis in the left lower lobe. - Physical Exam General: Alert, Cooperative, Confused, Disoriented, - - Speaking in full sentences on 2 L nasal cannula HEENT: Atraumatic, PERRLA, EOMI, Normocephalic, - - No scleral icterus or injection noted. Oral: Moist Mucosa, No Gingival or Mucosal Lesions/ Ulcerations Neck: Supple, No JVD, No Nodes, Trachea Midline Lungs: No rhonchi, No wheeze, No rales, Diminished, - - Symmetric expansion. No dullness to percussion. Cardiovascular: Regular rate, Regular Rhythm, Normal S1, Normal S2, No murmurs, No rub noted, No Gallop Abdomen: Bowel Sounds Present, Soft, Non Tender, Non-Distended, Obese Extremities: No clubbing, No cyanosis, No edema, Capillary Refill Less than 3 Seconds Skin: No rashes, No breakdown Musculoskeletal: No Tenderness to Palpation of Joints or Extremities Lymphatic: No Cervical, Supraclavicular, or Inguinal Adenopathy Neurological: Cranial nerves II-XII grossly intact, Neuro grossly intact, Motor Exam 5/5 strength throughout Psych/Mental Status: Appropriate, Flat Affect Vital Signs Temp Pulse Resp BP Pulse Ox 36.3 C L 71 22 H 118/7 L 95 12/19/17 07:50 12/19/17 07:06 12/19/17 07:00 12/19/17 07:00 12/19/17 07:00 Oxygen Flow Rate (L/min) 2 Oxygen Delivery Method Nasal Cannula Weight: 99.7 kg Intake and Output for Last 24 Hours 12/17/17 12/18/17 12/19/17 23:59 23:59 23:59 Intake Total 3584 / 3804 Output Total 400 / 400 250 / 250 Balance 3184 / 3404 -250 / -250 Microbiology Past 72 Hours 12/18/17 17:00 Group A Streptococcus Rapid Screen - Preliminary Mucosa - Throat 12/18/17 12:00 C. difficile DNA Amplification - Final Stool Laboratory Tests Past 24 Hrs 12/18/17 12/18/17 12/19/17 10:52 10:52 04:20 WBC 4.0 L RBC 4.15 L Hgb 12.3 Hct 38.8 MCV 93.5 MCH 29.6 MCHC 31.7 L RDW 14.6 RDW Differential 48.3 H Plt Count 150 MPV 10.4 Immature Gran % (Auto) 0.200 Neut % (Auto) 50.1 Lymph % (Auto) 29.6 Sanders % (Auto) 16.2 H Eos % (Auto) 3.7 Baso % (Auto) 0.2 Absolute Neuts (auto) 2.0 Absolute Lymphs (auto) 1.19 Total Counted Not Reportable Sodium Potassium Chloride Carbon Dioxide Anion Gap BUN Creatinine Estim Creat Clear Calc Est GFR (MDRD) Af Amer Est GFR (MDRD) Non-Af BUN/Creatinine Ratio Glucose Lactic Acid 0.8 Calcium B-Natriuretic Peptide 26.0 12/19/17 04:20 WBC RBC Hgb Hct MCV MCH MCHC RDW RDW Differential Plt Count MPV Immature Gran % (Auto) Neut % (Auto) Lymph % (Auto) Sanders % (Auto) Eos % (Auto) Baso % (Auto) Absolute Neuts (auto) Absolute Lymphs (auto) Total Counted Sodium 144 Potassium 4.2 Chloride 109 H Carbon Dioxide 27.0 Anion Gap 8 BUN 12 Creatinine 0.48 L Estim Creat Clear Calc 107.63 Est GFR (MDRD) Af Amer 171 Est GFR (MDRD) Non-Af 141 BUN/Creatinine Ratio 25.2 H Glucose 86 Lactic Acid Calcium 8.0 L B-Natriuretic Peptide Clinical Impression(s) from Imaging Studies Chest X-Ray 12/17/17 13:50 IMPRESSION: Stable appearance of the chest with no acute pathology. Electronically Signed: Escobar Valencia MD at 14:59 EDT , Service support , Lumbar Spine X-Ray 12/17/17 13:55 IMPRESSION: No acute abnormality of the lumbar spine. Electronically Signed: Escobar Valencia MD at 14:59 EDT , Service support , Chest X-Ray 12/18/17 08:26 IMPRESSION: No pulmonary edema, congestive heart failure or confluent pneumonia. Stable hilar/vascular prominence. Electronically Signed: Sophie Mitchell MD at 9:16 EDT , Service support , Assessment/Plan Active and Suspected Problems Physical deconditioning (Acute) Debility, unspecified (Acute) RECOMMENDATIONS: 1. Continue with Pulmicort and bronchodilators 2. Consider cortisol stimulation test as an outpatient 3. Consider orthostatic blood pressures 4. Okay to transfer from the intensive care unit IMPRESSIONS: 1. Hypotension Unclear etiology at this time. Patient does have baseline of vascular dementia and history is very unclear at this time. Patient has been responsive to IV fluids at this time. Patient's blood count has improved with IV hydration , along with renal function. Patient's TSH is within normal limits. Patient does not have any leukocytosis or signs of infectious etiology at this time. Patient may benefit from a cortisol stimulation test as an outpatient. Consider obtaining orthostatic blood pressures. Likely okay to transfer from the intensive care unit. 2. COPD/history of non-small cell lung cancer Patient does not appear to be in any acute exacerbation at this time. Do agree with continuing with Pulmicort and aerosol therapy as a substitution for home inhaler use. Infectious workup has been unremarkable to this point including a viral respiratory panel, influenza and kamara culture. 3. Vascular dementia/obesity/glaucoma/hyperlipidemia/debility/FTT Complicates care, management, recovery and prognosis. Likely okay to continue with baseline medications. Defer to hospitalist for further management. Code Visit Inpatient E&M: 38743 Init Hosp L3
--- NOTE | 2017-12-19 10:36 | CASEMGMT ---
SW was asked to see patient because she has Passport. SW reviewed patient's chart as she was in [facility] in September. Per chart review she goes to [employer] 5 days a week, she gets home delivered meals, and she has a medical alert button. She has a walker, wheelchair, and bedside commode. She receives assistance with bathing, dressing, and all IADL's. She gets a shower at [facility] 3 times a week. She went to [facility] memory care unit last hospital admission in Sep 2017. PREET called [facility] Home coverage line and spoke with Macario. He said patient has daycare at [employer] up to 6 days per week, 7 meals a week from [employer], and 5 hours of personal care a week from [facility]. Her Regional Clinical Research Associate is Maureen Morrow [phone]. PREET will talk with patient and/or family to discuss d/c plan. Cassie CRUZ MSW
[2017-12-19] MEDS: Aspirin 81 MG TAB.CHEW PO (10:37)
[2017-12-19] MEDS: Enoxaparin 40 MG/0.4 ML Syringe SC (10:37)
[2017-12-19] MEDS: Pravastatin 40 MG Tablet PO (10:37)
[2017-12-19] MEDS: NYSTATIN 500,000 UNIT/5 ML UDC 500000 UNIT PO ×4 (10:38→22:23)
[2017-12-19] MEDS: Nystatin Ointment 1 APPLIC TOPICAL ×2 (10:38→22:24)
--- NOTE | 2017-12-19 10:57 | CASEMGMT ---
Addendum entered by Cassie Madera 12/19/17 15:43: SW called [facility] and left a message for Janny inquiring when patient was d/c from [facility] in Oct. Cassie MARTÍNEZ Original Note: SW called patient's daughter, Kiley. She said if patient is going to need placement she would like her to go to [facility]. She said that [facility] has not started coming out to the home yet. She said her mom was d/c from [facility] in Oct. SW to follow for d/c planning. Csasie MARTÍNEZ
--- NOTE | 2017-12-19 12:44 | PCM.PROGNOTE ---
<Lee Wahl - Last Filed: 12/19/17 12:44> Patient Problems: Active and Suspected Problems Physical deconditioning (Acute) Debility, unspecified (Acute) Subjective: Patient is alert today, still very confused and answering some questions inapporpriately. She does report cough and some SOB today. She is still on O2. She denies hip/joint pain. She has no fever or chills. She is in the ICU as she had some low BP yesterday that did not improve initially with fluids, but reportedly since being in ICU her MAP has been good. She has a moeller cath in place for accurate I/O as she had some swelling in her hands yesterday. - Physical Exam General: Alert, Cooperative, Confused HEENT: Atraumatic, PERRLA, EOMI, Normocephalic Neck: Supple, No JVD, Negative Carotid Bruits Lungs: Clear to auscultation, Normal air movement, Wheezes - expiratory Cardiovascular: Regular rate, No murmurs Abdomen: Bowel Sounds Present, Soft, Non Tender Extremities: No edema, Capillary Refill Less than 3 Seconds Skin: No rashes, No breakdown Musculoskeletal: No Tenderness to Palpation of Joints or Extremities Neurological: Cranial nerves II-XII grossly intact Psych/Mental Status: Normal Affect, Appropriate Vital Signs Temp Pulse Resp BP Pulse Ox 98 F 82 21 H 105/73 94 12/19/17 11:35 12/19/17 11:35 12/19/17 11:35 12/19/17 11:35 12/19/17 11:35 Oxygen Flow Rate (L/min) 1 Oxygen Delivery Method Nasal Cannula Weight: 99.7 kg Intake and Output for Last 24 Hours 12/17/17 12/18/17 12/19/17 23:59 23:59 23:59 Intake Total 3584 / 3804 Output Total 400 / 400 250 / 250 Balance 3184 / 3404 -250 / -250 Microbiology Past 72 Hours 12/18/17 17:00 Group A Streptococcus Rapid Screen - Preliminary Mucosa - Throat 12/18/17 12:00 C. difficile DNA Amplification - Final Stool Laboratory Tests Past 24 Hrs 12/19/17 12/19/17 04:20 04:20 WBC 4.0 L RBC 4.15 L Hgb 12.3 Hct 38.8 MCV 93.5 MCH 29.6 MCHC 31.7 L RDW 14.6 RDW Differential 48.3 H Plt Count 150 MPV 10.4 Immature Gran % (Auto) 0.200 Neut % (Auto) 50.1 Lymph % (Auto) 29.6 [place] % (Auto) 16.2 H Eos % (Auto) 3.7 Baso % (Auto) 0.2 Absolute Neuts (auto) 2.0 Absolute Lymphs (auto) 1.19 Total Counted Not Reportable Sodium 144 Potassium 4.2 Chloride 109 H Carbon Dioxide 27.0 Anion Gap 8 BUN 12 Creatinine 0.48 L Estim Creat Clear Calc 107.63 Est GFR (MDRD) Af Amer 171 Est GFR (MDRD) Non-Af 141 BUN/Creatinine Ratio 25.2 H Glucose 86 Calcium 8.0 L Medical Necessity - Tobacco Use Smoking Status: Unknown if ever smoked Tobacco Use: Non-smoker Assessment/Plan Active and Suspected Problems Physical deconditioning (Acute) Debility, unspecified (Acute) 1. Debility/Weakness - last 2 admissions for weakness/failure to thrive. Was in [facility] but presented from home. She fell at home while ambulating with walker under unclear circumstances. Pt will be admitted and given supportive care and PTOT evals. Likely needs placed with plan for transition to assisted living or ECF. Blood work unremarkable, VSS, UA negative. XR lumbar spine negative. CXR neg. S/W consult for care planning. -Her CT of the chest shows stable suprahilar nodule with postobstructive atelectasis, and enlargement of the previous mediastinal lymph nodes, small BL pleural effusions, fatty liver, degen bony changes. 2. Hypotension - Now improved after bolus and maintenance fluids overnight in the ICU. She now has + SIRS but no sign of infection. She has negative CXR x 2, negative urine, negative viral panel, no leukocytosis, no diarrhea. Temp is normal, no longer tachy, and mildly tachypneic. EKG low voltage but otherwise unremarkable. BNP neg. Lactic acid is negative. TSH normal. Blood cultures pending. 2. Vascular Dementia - severe. Aricept. Pt A/O to self only. 3. COPD - continue aerosols and wean O2 as tolerated. Not on O2 prior to admission. 4. Hx Non-small cell lung CA - in remission s/p chemo/rads 5. HTN - trend 6. HLD - statin 7. Dysphagia - speech therapy - rec. mechanical soft swapna and nectar thickened liquids. sm bites, sm sips, slow rate, sitting upright with hip flex at 90 deg and meds with applesauce. DVT ppx: lovenox DC planning: Needs placement This patient was seen by Lee Wahl PA-C under the supervision of Doctor Shukri. <Evelio Watt - Last Filed: 12/19/17 17:48> Subjective: Patient had no spike of temperature in 36 hours. No tachycardia or objective signs of infection. Seen by infectious disease doctor. - Physical Exam General: Alert, Oriented x3, Cooperative HEENT: Atraumatic, PERRLA, EOMI, Normocephalic Neck: Supple, No JVD, Negative Carotid Bruits Lungs: Normal air movement, Diminished, Wheezes Cardiovascular: Regular rate, Regular Rhythm, Normal S1, Normal S2, No murmurs Abdomen: Bowel Sounds Present, Soft, Non Tender Extremities: No edema, Capillary Refill Less than 3 Seconds Skin: No rashes, No breakdown Musculoskeletal: No Tenderness to Palpation of Joints or Extremities Neurological: Cranial nerves II-XII grossly intact Psych/Mental Status: Normal Affect, Appropriate Vital Signs Temp Pulse Resp BP Pulse Ox 98.7 F 73 18 112/69 98 12/19/17 17:00 12/19/17 17:00 12/19/17 17:00 12/19/17 17:00 12/19/17 17:00 Oxygen Flow Rate (L/min) 2 Oxygen Delivery Method Nasal Cannula Weight: 219 lb 12.814 oz Intake and Output for Last 24 Hours 12/17/17 12/18/17 12/19/17 23:59 23:59 23:59 Intake Total 3584 / 3804 600 / 600 Output Total 400 / 400 600 / 600 Balance 3184 / 3404 0 / 0 Microbiology Past 72 Hours 12/18/17 17:00 Group A Streptococcus Rapid Screen - Preliminary Mucosa - Throat 12/18/17 12:00 C. difficile DNA Amplification - Final Stool Laboratory Tests Past 24 Hrs 12/19/17 12/19/17 04:20 04:20 WBC 4.0 L RBC 4.15 L Hgb 12.3 Hct 38.8 MCV 93.5 MCH 29.6 MCHC 31.7 L RDW 14.6 RDW Differential 48.3 H Plt Count 150 MPV 10.4 Immature Gran % (Auto) 0.200 Neut % (Auto) 50.1 Lymph % (Auto) 29.6 [place] % (Auto) 16.2 H Eos % (Auto) 3.7 Baso % (Auto) 0.2 Absolute Neuts (auto) 2.0 Absolute Lymphs (auto) 1.19 Total Counted Not Reportable Sodium 144 Potassium 4.2 Chloride 109 H Carbon Dioxide 27.0 Anion Gap 8 BUN 12 Creatinine 0.48 L Estim Creat Clear Calc 107.63 Est GFR (MDRD) Af Amer 171 Est GFR (MDRD) Non-Af 141 BUN/Creatinine Ratio 25.2 H Glucose 86 Calcium 8.0 L Assessment/Plan This patient was seen in conjunction with Lee MYERS. I have independently interviewed and examined the patient and reviewed pertinent history, examination findings, laboratory and plan of management. I have reviewed the note and agree with the documented findings with the few additional points. In brief, patient is admitted for generalized weakness and failure to thrive. She was transferred to ICU for hypotension which is resolved now. Prelim blood culture shows gram-positive cocci. Seen by infectious disease DrZac and recommended no antibiotic. Other sepsis workup including a respiratory panel, urine culture, C. difficile and group A Streptococcus rapid screen are negative. I have discussed my assessment with Lee MYERS and orders have been reviewed. Code Visit Inpatient E&M: 09112 Subs Hosp L3
--- NOTE | 2017-12-19 15:29 | PCM.HP.ID ---
Problem List (1) Debility, unspecified Status: Acute Reason for Consult: fall Consulted by: Dr. Watt History of Present Illness: The patient is a 62 year old F admitted after fall at home. Had been feeling fine, no fever, no recent illnesses, no recent abx. No new complaints of abd pain, cough, SOB, abd pain, n/v/d, dysuria, rash, myalgias. Couldn't get off the floor and called EMS after a few minutes. Admitted to [facility], feeling better. No abx given, being transferred out of icu. Full ROS performed and neg except as noted above. 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 Cerebral microvascular disease (Chronic) severe Dementia, vascular (Chronic) Obesity (Chronic) Nodule of right lung (Chronic) stable Allergies/Adverse Reactions: Allergies adhesive tape Allergy (Verified 12/17/17 14:06) Rash codeine Allergy (Verified 12/17/17 14:06) Nausea Penicillins Allergy (Verified 12/17/17 14:06) Rash Home Medications: Ambulatory Orders Medication Instructions Recorded Aspirin 81 mg PO DAILY 10/02/17 Donepezil HCl 10 mg PO QHS 10/02/17 Fluticasone/Vilanterol [Breo 1 each IH DAILY 10/02/17 Ellipta 200-25 Mcg INH] Latanoprost 0.005% [Xalatan 1 drop EACH EYE QHS 10/02/17 Opthalmic] Oxybutynin Chloride [Ditropan Xl] 5 mg PO DAILY 10/02/17 Potassium Chloride 20 meq PO BID 10/02/17 Pravastatin Sodium 40 mg PO DAILY 10/02/17 Vital Signs Temp Pulse Resp BP Pulse Ox 98.8 F 75 19 H 125/81 H 98 12/19/17 14:16 12/19/17 14:16 12/19/17 14:16 12/19/17 14:16 12/19/17 14:16 Oxygen Flow Rate (L/min) 1 Oxygen Delivery Method Nasal Cannula Weight: 99.7 kg Microbiology Past 72 Hours 12/18/17 17:00 Group A Streptococcus Rapid Screen - Preliminary Mucosa - Throat 12/18/17 12:00 C. difficile DNA Amplification - Final Stool Laboratory Tests Past 24 Hrs 12/19/17 12/19/17 04:20 04:20 WBC 4.0 L RBC 4.15 L Hgb 12.3 Hct 38.8 MCV 93.5 MCH 29.6 MCHC 31.7 L RDW 14.6 RDW Differential 48.3 H Plt Count 150 MPV 10.4 Immature Gran % (Auto) 0.200 Neut % (Auto) 50.1 Lymph % (Auto) 29.6 [place] % (Auto) 16.2 H Eos % (Auto) 3.7 Baso % (Auto) 0.2 Absolute Neuts (auto) 2.0 Absolute Lymphs (auto) 1.19 Total Counted Not Reportable Sodium 144 Potassium 4.2 Chloride 109 H Carbon Dioxide 27.0 Anion Gap 8 BUN 12 Creatinine 0.48 L Estim Creat Clear Calc 107.63 Est GFR (MDRD) Af Amer 171 Est GFR (MDRD) Non-Af 141 BUN/Creatinine Ratio 25.2 H Glucose 86 Calcium 8.0 L - Other Studies Radiology: [] reviewed Other Studies: [] Route of nutrition/ use of supplements: [] Nutritional Intake: [] IV Site: [] Dorman Catheter: [] - Physical Exam General: Alert, Oriented x3, Cooperative HEENT: Atraumatic, PERRLA, EOMI Neck: Supple, No Nodes Lungs: Clear to auscultation, Normal air movement Cardiovascular: Regular rate, Regular Rhythm Abdomen: Bowel Sounds Present, Soft, Non Tender, Non-Distended Skin: No rashes IV Site: Peripheral, without redness Musculoskeletal: No Tenderness to Palpation of Joints or Extremities - Assessment/Plan Antibiotics: [] Assessment/Plan: [] Active and Suspected Problems Physical deconditioning (Acute) Debility, unspecified (Acute) Weakness and fall at home - no fever, no leukocytosis, no focal symptoms or changes on exam. No sign of infection. Feeling better without any abx. Agree with current management. Thank you, will follow as needed.
[2017-12-19] MEDS: Latanoprost 0.005% 1 Bottle 1 DRP EACH EYE (22:23)
[2017-12-19] MEDS: Donepezil HCl 10 MG Tablet PO (22:40)
[2017-12-20] VITALS (15 sets, daily range): BP systolic 105–145; BP diastolic 07–88; PULSE 71–89; RESP 16–21; TEMP 36.5–37.2; O2SAT 93–98
[2017-12-20] MEDS: Ipratropium/Albuterol Sulfate 3 ML AMPUL.NEB INHALATION ×3 (02:48→18:50)
[2017-12-20] MEDS: Budesonide Respules 0.5 MG/2 ML AMPUL.NEB. INHALATION ×2 (07:14→18:50)
[2017-12-20] MEDS: Nystatin Ointment 1 APPLIC TOPICAL ×2 (08:44→22:35)
[2017-12-20] MEDS: NYSTATIN 500,000 UNIT/5 ML UDC 500000 UNIT PO ×3 (08:45→21:26)
[2017-12-20] MEDS: Aspirin 81 MG TAB.CHEW PO (08:48)
[2017-12-20] MEDS: Enoxaparin 40 MG/0.4 ML Syringe SC (08:49)
[2017-12-20] MEDS: Pravastatin 40 MG Tablet PO (08:54)
--- NOTE | 2017-12-20 09:09 | PCM.PROGNOTE ---
Patient Problems: Active and Suspected Problems Physical deconditioning (Acute) Debility, unspecified (Acute) Subjective: Patient was seen and examined. She remains afebrile and hemodynamically stable. She remains confused, states the year is 0. Denies any back pain today. Denies cough or sputum production. Denies dizziness. Objective: Recent lab and culture data reviewed. Infectious workup negative to date, including respiratory panel, urine and blood cultures, Hemoccult stool and C. difficile, and rapid strep with culture pending. CXR 12/18 normal/hypoexpanded. Chest CT 12/19 showed stable 2.3 x 1.8 cm right suprahilar nodule causing postobstructive atelectasis, previously noted mediastinal lymph nodes increased in size since previous study, small free-flowing bilateral pleural effusions, fatty liver and degenerative bony changes. Echocardiogram 12/19/17: Normal LV size. Mild concentric left ventricular hypertrophy. Left ventricular systolic function is normal. The estimated ejection fraction is 70 %. Mild (1+) tricuspid valve insufficiency. Pulmonary artery systolic pressure is 46 mmHg. Trivial pericardial effusion. - Physical Exam General: Alert, Cooperative, No apparent distress, Well developed, Well nourished, Confused HEENT: Atraumatic, Normocephalic Oral: Moist Mucosa, No Gingival or Mucosal Lesions/ Ulcerations Neck: Supple, No Nodes, Trachea Midline Lungs: Diminished, - - Scattered rhonchi throughout posterior. Symmetrical expansion, no dullness to percussion Cardiovascular: Regular rate, Regular Rhythm, Normal S1, Normal S2, No murmurs, No rub noted, No Gallop Abdomen: Bowel Sounds Present, Soft, Non Tender, Non-Distended, Obese Extremities: No clubbing, No cyanosis, No edema Skin: No rashes Musculoskeletal: No Tenderness to Palpation of Joints or Extremities Lymphatic: No Cervical, Supraclavicular, or Inguinal Adenopathy Neurological: Neuro grossly intact, Motor Exam 5/5 strength throughout Psych/Mental Status: Flat Affect, - - cooperative Vital Signs Temp Pulse Resp BP Pulse Ox 97.7 F L 88 16 120/88 H 93 12/20/17 08:57 12/20/17 08:57 12/20/17 08:57 12/20/17 08:57 12/20/17 08:57 Oxygen Flow Rate (L/min) 2 Oxygen Delivery Method Nasal Cannula Weight: 214 lb 4.629 oz Intake and Output for Last 24 Hours 12/18/17 12/19/17 12/20/17 23:59 23:59 23:59 Intake Total 3584 / 3804 600 / 600 Output Total 400 / 400 600 / 600 Balance 3184 / 3404 0 / 0 Microbiology Past 72 Hours 12/18/17 17:00 Group A Streptococcus Rapid Screen - Preliminary Mucosa - Throat 12/18/17 12:00 C. difficile DNA Amplification - Final Stool Medical Necessity - Tobacco Use Smoking Status: Unknown if ever smoked Tobacco Use: Non-smoker Assessment/Plan Active and Suspected Problems Physical deconditioning (Acute) Debility, unspecified (Acute) RECOMMENDATIONS: 1. Continue with Pulmicort and bronchodilators 2. Consider cortisol stimulation test as an outpatient 3. Orthostatic vitals today 4. Encourage incentive spirometer 5. Mobilize, continue PT/OT IMPRESSIONS: 1. Hypotension Unclear etiology at this time. Patient does have baseline of vascular dementia and history is very unclear at this time. Patient has been responsive to IV fluids at this time. Patient's blood count has improved with IV hydration, along with renal function. TSH is within normal limits. Patient does not have any leukocytosis or signs of infectious etiology at this time. Patient may benefit from a cortisol stimulation test as an outpatient. Consider obtaining orthostatic blood pressures. Likely okay to transfer from the intensive care unit. 2. COPD/history of non-small cell lung cancer Patient does not appear to be in any acute exacerbation at this time. Do agree with continuing with Pulmicort and aerosol therapy as a substitution for home inhaler use. Infectious workup has been unremarkable to this point including a viral respiratory panel, influenza, rapid strep, and kamara culture. Pulmonary artery pressures at 46 mmHg on current echo. 3. Vascular dementia/obesity/glaucoma/hyperlipidemia/debility/FTT Complicates care, management, recovery and prognosis. Likely okay to continue with baseline medications. Defer to hospitalist for further management. Likely will require senior care at discharge, she was just discharged from [facility] in October. This note was generated with [employer] dictation software. It may contain incorrect words, spelling, and punctuation that were not noted in checking the note before signing.
--- NOTE | 2017-12-20 09:25 | PN_ITS ---
Patient Problems: Active and Suspected Problems Physical deconditioning (Acute) Debility, unspecified (Acute) Subjective: Patient was seen and examined. She remains afebrile and hemodynamically stable. She remains confused, states the year is 0. Denies any back pain today. Denies cough or sputum production. Denies dizziness. Objective: Recent lab and culture data reviewed. Infectious workup negative to date, including respiratory panel, urine and blood cultures, Hemoccult stool and C. difficile, and rapid strep with culture pending. CXR 12/18 normal/hypoexpanded. Chest CT 12/19 showed stable 2.3 x 1.8 cm right suprahilar nodule causing postobstructive atelectasis, previously noted mediastinal lymph nodes increased in size since previous study, small free-flowing bilateral pleural effusions, fatty liver and degenerative bony changes. Echocardiogram 12/19/17: Normal LV size. Mild concentric left ventricular hypertrophy. Left ventricular systolic function is normal. The estimated ejection fraction is 70 %. Mild (1+) tricuspid valve insufficiency. Pulmonary artery systolic pressure is 46 mmHg. Trivial pericardial effusion. - Physical Exam General: Alert, Cooperative, No apparent distress, Well developed, Well nourished, Confused HEENT: Atraumatic, Normocephalic Oral: Moist Mucosa, No Gingival or Mucosal Lesions/ Ulcerations Neck: Supple, No Nodes, Trachea Midline Lungs: Diminished, - - Scattered rhonchi throughout posterior. Symmetrical expansion, no dullness to percussion Cardiovascular: Regular rate, Regular Rhythm, Normal S1, Normal S2, No murmurs, No rub noted, No Gallop Abdomen: Bowel Sounds Present, Soft, Non Tender, Non-Distended, Obese Extremities: No clubbing, No cyanosis, No edema Skin: No rashes Musculoskeletal: No Tenderness to Palpation of Joints or Extremities Lymphatic: No Cervical, Supraclavicular, or Inguinal Adenopathy Neurological: Neuro grossly intact, Motor Exam 5/5 strength throughout Psych/Mental Status: Flat Affect, - - cooperative Vital Signs Temp Pulse Resp BP Pulse Ox 97.7 F L 88 16 120/88 H 93 12/20/17 08:57 12/20/17 08:57 12/20/17 08:57 12/20/17 08:57 12/20/17 08:57 Oxygen Flow Rate (L/min) 2 Oxygen Delivery Method Nasal Cannula Weight: 214 lb 4.629 oz Intake and Output for Last 24 Hours 12/18/17 12/19/17 12/20/17 23:59 23:59 23:59 Intake Total 3584 / 3804 600 / 600 Output Total 400 / 400 600 / 600 Balance 3184 / 3404 0 / 0 Microbiology Past 72 Hours 12/18/17 17:00 Group A Streptococcus Rapid Screen - Preliminary Mucosa - Throat 12/18/17 12:00 C. difficile DNA Amplification - Final Stool Medical Necessity - Tobacco Use Smoking Status: Unknown if ever smoked Tobacco Use: Non-smoker Assessment/Plan Active and Suspected Problems Physical deconditioning (Acute) Debility, unspecified (Acute) RECOMMENDATIONS: 1. Continue with Pulmicort and bronchodilators 2. Consider cortisol stimulation test as an outpatient 3. Orthostatic vitals today 4. Encourage incentive spirometer 5. Mobilize, continue PT/OT IMPRESSIONS: 1. Hypotension Unclear etiology at this time. Patient does have baseline of vascular dementia and history is very unclear at this time. Patient has been responsive to IV fluids at this time. Patient's blood count has improved with IV hydration , along with renal function. TSH is within normal limits. Patient does not have any leukocytosis or signs of infectious etiology at this time. Patient may benefit from a cortisol stimulation test as an outpatient. Consider obtaining orthostatic blood pressures. Likely okay to transfer from the intensive care unit. 2. COPD/history of non-small cell lung cancer Patient does not appear to be in any acute exacerbation at this time. Do agree with continuing with Pulmicort and aerosol therapy as a substitution for home inhaler use. Infectious workup has been unremarkable to this point including a viral respiratory panel, influenza, rapid strep, and kamara culture. Pulmonary artery pressures at 46 mmHg on current echo. 3. Vascular dementia/obesity/glaucoma/hyperlipidemia/debility/FTT Complicates care, management, recovery and prognosis. Likely okay to continue with baseline medications. Defer to hospitalist for further management. Likely will require penitentiary at discharge, she was just discharged from [facility] in October. This note was generated with [employer] dictation software. It may contain incorrect words, spelling, and punctuation that were not noted in checking the note before signing.
--- NOTE | 2017-12-20 09:47 | CASEMGMT ---
SW received a voice mail from Janny at [facility]. Patient left [facility] 11-04-17. PREET will talk with patient's daughter about d/c plan. Cassie CRUZ MSW
--- NOTE | 2017-12-20 10:55 | CASEMGMT ---
SW called patient's daughter and she is fine with SW sending a referral to [facility]. SW faxed referral to [facility] and spoke with Janny earlier. Plan: [facility] when medically ready. Cassie MARTÍNEZ
--- NOTE | 2017-12-20 12:45 | PCM.PROGNOTE ---
<Lee Wahl - Last Filed: 12/20/17 12:45> Patient Problems: Active and Suspected Problems Physical deconditioning (Acute) Debility, unspecified (Acute) Subjective: Pt seen and examined, resting comfortably in chair at bedside. She seems more alert this AM. She complains of mild SOB and non productive cough this AM. No fevers or chills. No abdominal pain, diarrhea, nausea/vomiting. She is still confused but appears more alert. - Physical Exam General: Alert, Oriented x3, Cooperative HEENT: Atraumatic, PERRLA, EOMI, Normocephalic Neck: Supple, No JVD, Negative Carotid Bruits Lungs: Clear to auscultation, Normal air movement Cardiovascular: Regular rate, No murmurs Abdomen: Bowel Sounds Present, Soft, Non Tender Extremities: No edema, Capillary Refill Less than 3 Seconds Skin: No rashes, No breakdown Musculoskeletal: No Tenderness to Palpation of Joints or Extremities Neurological: Cranial nerves II-XII grossly intact Psych/Mental Status: Normal Affect, Appropriate, Alert and oriented to time, place, person, mood and affect Vital Signs Temp Pulse Resp BP Pulse Ox 97.7 F L 82 16 106/07 L 93 12/20/17 08:57 12/20/17 11:00 12/20/17 08:57 12/20/17 10:27 12/20/17 08:57 Oxygen Flow Rate (L/min) 2 Oxygen Delivery Method Nasal Cannula Weight: 97.2 kg Orthostatic Vital Signs Start: 12/20/17 10:27 Freq: q24h Status: Active Protocol: Activity Type Activity Date Activity User E-Sign Co-Sign Detail Recorded Client Recorded Date Recorded By Document 12/20/17 10:27 [id number] 12/20/17 10:28 12/20/17 10:27 Orthostatic Vitals Standing -Blood Pressure (90/60-120/80) 116/71 -Extremity Use Left Arm Sitting -Blood Pressure (90/60-120/80) 105/63 -Extremity Use Left Arm Lying -Blood Pressure (90/60-120/80) 106/07 L -Extremity Use Left Arm Intake and Output for Last 24 Hours 12/18/17 12/19/17 12/20/17 23:59 23:59 23:59 Intake Total 3584 / 3804 600 / 600 500 / 500 Output Total 400 / 400 600 / 600 Balance 3184 / 3404 0 / 0 500 / 500 Microbiology Past 72 Hours 12/18/17 17:00 Group A Streptococcus Rapid Screen - Preliminary Mucosa - Throat 12/18/17 12:00 C. difficile DNA Amplification - Final Stool Medical Necessity - Tobacco Use Smoking Status: Unknown if ever smoked Tobacco Use: Non-smoker Assessment/Plan Active and Suspected Problems Physical deconditioning (Acute) Debility, unspecified (Acute) 1. Debility/Weakness - last 2 admissions for weakness/failure to thrive. She is very weak and needs assist to stand. Has ambulated with walker once she is up. Was in [facility] but presented from home. She fell at home while ambulating with walker under unclear circumstances. Pt will be admitted and given supportive care and PTOT evals. Likely needs placed with plan for transition to assisted living or ECF. Blood work unremarkable, VSS, UA negative. XR lumbar spine negative. CXR neg. S/W consult for care planning. -Her CT of the chest shows stable suprahilar nodule with postobstructive atelectasis, and enlargement of the previous mediastinal lymph nodes, small BL pleural effusions, fatty liver, degen bony changes. Discussed with pulm, lymph node enlargement is mild. 2. Hypotension 2/2 dehydration - Resolved with IV fluids. Infectious work up so far negative. ID following patient no abx indicated. One blood culture showing gram positive edouard felt to be contaminant. Orthostatic vitals are negative. 2. Vascular Dementia - severe. Aricept. Pt A/O to self only. 3. COPD - continue aerosols and wean O2 as tolerated. Not on O2 prior to admission. 4. Hx Non-small cell lung CA - in remission s/p chemo/rads 5. HTN - trend 6. HLD - statin 7. Dysphagia - speech therapy - rec. mechanical soft swapna and nectar thickened liquids. sm bites, sm sips, slow rate, sitting upright with hip flex at 90 deg and meds with applesauce. 8. Thrush - PO nystatin. Probably 2/2 inhaled steroids (fluticasone) DVT ppx: lovenox DC planning: Needs placement This patient was seen by Lee Wahl PA-C under the supervision of Doctor Shukri. <Evelio Watt - Last Filed: 12/20/17 15:21> Subjective: Seen and examined. Patient is still confused and disoriented. - Physical Exam Lungs: Clear to auscultation, Normal air movement Vital Signs Temp Pulse Resp BP Pulse Ox 97.7 F L 82 16 106/07 L 93 12/20/17 08:57 12/20/17 11:00 12/20/17 08:57 12/20/17 10:27 12/20/17 08:57 Oxygen Flow Rate (L/min) 2 Oxygen Delivery Method Nasal Cannula Weight: 214 lb 4.629 oz Orthostatic Vital Signs Start: 12/20/17 10:27 Freq: q24h Status: Active Protocol: Activity Type Activity Date Activity User E-Sign Co-Sign Detail Recorded Client Recorded Date Recorded By Document 12/20/17 10:27 [id number] 12/20/17 10:28 12/20/17 10:27 Orthostatic Vitals Standing -Blood Pressure (90/60-120/80) 116/71 -Extremity Use Left Arm Sitting -Blood Pressure (90/60-120/80) 105/63 -Extremity Use Left Arm Lying -Blood Pressure (90/60-120/80) 106/07 L -Extremity Use Left Arm Intake and Output for Last 24 Hours 12/18/17 12/19/17 12/20/17 23:59 23:59 23:59 Intake Total 3584 / 3804 600 / 600 500 / 500 Output Total 400 / 400 600 / 600 Balance 3184 / 3404 0 / 0 500 / 500 Microbiology Past 72 Hours 12/18/17 17:00 Group A Streptococcus Rapid Screen - Preliminary Mucosa - Throat 12/18/17 12:00 C. difficile DNA Amplification - Final Stool Assessment/Plan This patient was seen in conjunction with Lee MYERS. I have independently interviewed and examined the patient and reviewed pertinent history, examination findings, laboratory and plan of management. I have reviewed the note and agree with the documented findings with the few additional points. In brief, patient is admitted for generalized weakness and failure to thrive. She was transferred to ICU for hypotension which is resolved now. blood culture shows gram-positive cocci which is deep throughout suggestive of contamination. Seen by infectious disease DrZac and recommended no antibiotic. Other sepsis workup including a respiratory panel, urine culture, C. difficile and group A Streptococcus rapid screen are negative. CT chest shows a stable 2.3 x 1.8 cm right suprahilar nodule causing postoperative atelectasis. I have discussed my assessment with Lee MYERS and orders have been reviewed. Clinical Impression(s) from Imaging Studies Chest CT 12/19/17 06:18 IMPRESSION: Stable 2.3 x 1.8 cm right suprahilar nodule causing postobstructive atelectasis. Previously noted mediastinal lymph nodes have increased in size since the previous study, now measuring up to 1.3 cm in short axis dimension Small free-flowing bilateral pleural effusions Degenerative bony changes Fatty liver Code Visit Inpatient E&M: 50736 Subs Hosp L3
[2017-12-20] MEDS: Latanoprost 0.005% 1 Bottle 1 DRP EACH EYE (21:25)
[2017-12-20] MEDS: Donepezil HCl 10 MG Tablet PO (21:25)
[2017-12-21] VITALS (8 sets, daily range): BP systolic 122–138; BP diastolic 75–79; PULSE 73–99; RESP 12–17; TEMP 36.7–37.3; O2SAT 92–93
[2017-12-21] MEDS: Budesonide Respules 0.5 MG/2 ML AMPUL.NEB. INHALATION (06:38)
[2017-12-21] MEDS: Ipratropium/Albuterol Sulfate 3 ML AMPUL.NEB INHALATION (06:38)
--- NOTE | 2017-12-21 08:57 | PCM.PROGNOTE ---
Patient Problems: Active and Suspected Problems Fall (Acute) Debility, unspecified (Acute) Subjective: Patient was seen and examined. She awakens easily from sleep. Denies any specific complaints today. States she is leaving. Objective: Recent lab work and culture data reviewed. Infectious workup negative to date, including respiratory panel, urine culture, Hemoccult stool and C. difficile, and rapid strep with culture pending. First blood culture NG ?48 hours, blood culture #2 preliminary showing gram-positive edouard suggestive of a diptheroid, possible skin contamination. CXR 12/18 normal/hypoexpanded. Chest CT 12/19 showed stable 2.3 x 1.8 cm right suprahilar nodule causing postobstructive atelectasis, previously noted mediastinal lymph nodes increased in size since previous study, small free-flowing bilateral pleural effusions, fatty liver and degenerative bony changes. Echocardiogram 12/19/17: Normal LV size. Mild concentric left ventricular hypertrophy. Left ventricular systolic function is normal. The estimated ejection fraction is 70 %. Mild (1+) tricuspid valve insufficiency. Pulmonary artery systolic pressure is 46 mmHg. Trivial pericardial effusion. - Physical Exam General: Alert, Cooperative, No apparent distress, Well developed, Well nourished, - - Oriented to self and place HEENT: Atraumatic, Normocephalic Oral: Moist Mucosa Neck: Supple, No Nodes, Trachea Midline Lungs: No wheeze, No rales, Diminished, Rhonchi - Clears with cough Cardiovascular: Regular rate, Regular Rhythm, Normal S1, Normal S2 Abdomen: Bowel Sounds Present, Soft, Non Tender, Obese Extremities: No clubbing, No cyanosis, No edema Skin: - - No changes Musculoskeletal: No Tenderness to Palpation of Joints or Extremities Lymphatic: No Cervical, Supraclavicular, or Inguinal Adenopathy Neurological: Neuro grossly intact Psych/Mental Status: - - Confused but cooperative Vital Signs Temp Pulse Resp BP Pulse Ox 98.1 F 84 12 134/75 H 92 12/21/17 08:55 12/21/17 08:55 12/21/17 08:55 12/21/17 08:55 12/21/17 08:55 Oxygen Flow Rate (L/min) 2 Oxygen Delivery Method Nasal Cannula Weight: 210 lb 8.663 oz Orthostatic Vital Signs Start: 12/20/17 10:27 Freq: q24h Status: Active Protocol: Activity Type Activity Date Activity User E-Sign Co-Sign Detail Recorded Client Recorded Date Recorded By Document 12/21/17 06:06 [facility] [id number] 12/21/17 06:22 Padmini 12/21/17 06:06 Orthostatic Vitals Standing -Blood Pressure (90/60-120/80) 122/78 H -Extremity Use Right Arm -Pulse Rate (60-100) 99 Sitting -Blood Pressure (90/60-120/80) 129/77 H -Extremity Use Right Arm -Pulse Rate (60-100) 77 Lying -Blood Pressure (90/60-120/80) 133/77 H -Extremity Use Right Arm -Pulse Rate (60-100) 79 Intake and Output for Last 24 Hours 12/19/17 12/20/17 12/21/17 23:59 23:59 23:59 Intake Total 600 / 600 800 / 800 100 / 100 Output Total 600 / 600 Balance 0 / 0 800 / 800 100 / 100 Microbiology Past 72 Hours 12/18/17 17:00 Group A Streptococcus Rapid Screen - Final Mucosa - Throat 12/18/17 12:00 C. difficile DNA Amplification - Final Stool Medical Necessity - Tobacco Use Smoking Status: Unknown if ever smoked Tobacco Use: Non-smoker Assessment/Plan Active and Suspected Problems Fall (Acute) Debility, unspecified (Acute) RECOMMENDATIONS: 1. Continue with Pulmicort and bronchodilators 2. Consider cortisol stimulation test as an outpatient 3. Encourage incentive spirometer 4. Mobilize, continue PT/OT 5. Okay to discharge to SNF from pulmonary perspective, continue baseline inhaler therapy of Breo IMPRESSIONS: 1. Hypotension Resolved. Unclear etiology at this time. Patient does have baseline of vascular dementia and history is very unclear at this time. Patient responded well to IV fluids. Patient's blood count and renal function have improved with IV hydration. TSH is within normal limits. Patient does not have any leukocytosis or signs of infectious etiology at this time. Patient may benefit from a cortisol stimulation test as an outpatient. Orthostatics were normal. Likely okay to transfer from the intensive care unit. 2. COPD/history of non-small cell lung cancer Patient does not appear to be in any acute exacerbation at this time. Do agree with continuing with Pulmicort and aerosol therapy as a substitution for home inhaler use. Infectious workup has been unremarkable to this point including a viral respiratory panel, influenza, rapid strep, and kamara culture. Pulmonary artery pressures at 46 mmHg on current echo. 3. Vascular dementia/obesity/glaucoma/hyperlipidemia/debility/FTT Complicates care, management, recovery and prognosis. Likely okay to continue with baseline medications. Defer to hospitalist for further management. shelter at discharge, she was just discharged from [facility] in October and is tentatively going back there later today. This note was generated with [employer] dictation software. It may contain incorrect words, spelling, and punctuation that were not noted in checking the note before signing.
[2017-12-21] MEDS: NYSTATIN 500,000 UNIT/5 ML UDC 500000 UNIT PO (08:58)
[2017-12-21] MEDS: Aspirin 81 MG TAB.CHEW PO (08:58)
[2017-12-21] MEDS: Pravastatin 40 MG Tablet PO (08:58)
[2017-12-21] MEDS: Enoxaparin 40 MG/0.4 ML Syringe SC (08:58)
[2017-12-21] MEDS: Nystatin Ointment 1 APPLIC TOPICAL (08:59)
--- NOTE | 2017-12-21 09:07 | PN_ITS ---
Patient Problems: Active and Suspected Problems Fall (Acute) Debility, unspecified (Acute) Subjective: Patient was seen and examined. She awakens easily from sleep. Denies any specific complaints today. States she is leaving. Objective: Recent lab work and culture data reviewed. Infectious workup negative to date, including respiratory panel, urine culture, Hemoccult stool and C. difficile, and rapid strep with culture pending. First blood culture NG ?48 hours, blood culture #2 preliminary showing gram-positive edouard suggestive of a diptheroid, possible skin contamination. CXR 12/18 normal/hypoexpanded. Chest CT 12/19 showed stable 2.3 x 1.8 cm right suprahilar nodule causing postobstructive atelectasis, previously noted mediastinal lymph nodes increased in size since previous study, small free-flowing bilateral pleural effusions, fatty liver and degenerative bony changes. Echocardiogram 12/19/17: Normal LV size. Mild concentric left ventricular hypertrophy. Left ventricular systolic function is normal. The estimated ejection fraction is 70 %. Mild (1+) tricuspid valve insufficiency. Pulmonary artery systolic pressure is 46 mmHg. Trivial pericardial effusion. - Physical Exam General: Alert, Cooperative, No apparent distress, Well developed, Well nourished, - - Oriented to self and place HEENT: Atraumatic, Normocephalic Oral: Moist Mucosa Neck: Supple, No Nodes, Trachea Midline Lungs: No wheeze, No rales, Diminished, Rhonchi - Clears with cough Cardiovascular: Regular rate, Regular Rhythm, Normal S1, Normal S2 Abdomen: Bowel Sounds Present, Soft, Non Tender, Obese Extremities: No clubbing, No cyanosis, No edema Skin: - - No changes Musculoskeletal: No Tenderness to Palpation of Joints or Extremities Lymphatic: No Cervical, Supraclavicular, or Inguinal Adenopathy Neurological: Neuro grossly intact Psych/Mental Status: - - Confused but cooperative Vital Signs Temp Pulse Resp BP Pulse Ox 98.1 F 84 12 134/75 H 92 12/21/17 08:55 12/21/17 08:55 12/21/17 08:55 12/21/17 08:55 12/21/17 08:55 Oxygen Flow Rate (L/min) 2 Oxygen Delivery Method Nasal Cannula Weight: 210 lb 8.663 oz Orthostatic Vital Signs Start: 12/20/17 10:27 Freq: q24h Status: Active Protocol: Activity Type Activity Date Activity User E-Sign Co-Sign Detail Recorded Client Recorded Date Recorded By Document 12/21/17 06:06 [facility] [place] [id number] 12/21/17 06:22 Padmini 12/21/17 06:06 Orthostatic Vitals Standing -Blood Pressure (90/60-120/80) 122/78 H -Extremity Use Right Arm -Pulse Rate (60-100) 99 Sitting -Blood Pressure (90/60-120/80) 129/77 H -Extremity Use Right Arm -Pulse Rate (60-100) 77 Lying -Blood Pressure (90/60-120/80) 133/77 H -Extremity Use Right Arm -Pulse Rate (60-100) 79 Intake and Output for Last 24 Hours 12/19/17 12/20/17 12/21/17 23:59 23:59 23:59 Intake Total 600 / 600 800 / 800 100 / 100 Output Total 600 / 600 Balance 0 / 0 800 / 800 100 / 100 Microbiology Past 72 Hours 12/18/17 17:00 Group A Streptococcus Rapid Screen - Final Mucosa - Throat 12/18/17 12:00 C. difficile DNA Amplification - Final Stool Medical Necessity - Tobacco Use Smoking Status: Unknown if ever smoked Tobacco Use: Non-smoker Assessment/Plan Active and Suspected Problems Fall (Acute) Debility, unspecified (Acute) RECOMMENDATIONS: 1. Continue with Pulmicort and bronchodilators 2. Consider cortisol stimulation test as an outpatient 3. Encourage incentive spirometer 4. Mobilize, continue PT/OT 5. Okay to discharge to SNF from pulmonary perspective, continue baseline inhaler therapy of Breo IMPRESSIONS: 1. Hypotension Resolved. Unclear etiology at this time. Patient does have baseline of vascular dementia and history is very unclear at this time. Patient responded well to IV fluids. Patient's blood count and renal function have improved with IV hydration. TSH is within normal limits. Patient does not have any leukocytosis or signs of infectious etiology at this time. Patient may benefit from a cortisol stimulation test as an outpatient. Orthostatics were normal. Likely okay to transfer from the intensive care unit. 2. COPD/history of non-small cell lung cancer Patient does not appear to be in any acute exacerbation at this time. Do agree with continuing with Pulmicort and aerosol therapy as a substitution for home inhaler use. Infectious workup has been unremarkable to this point including a viral respiratory panel, influenza, rapid strep, and kamara culture. Pulmonary artery pressures at 46 mmHg on current echo. 3. Vascular dementia/obesity/glaucoma/hyperlipidemia/debility/FTT Complicates care, management, recovery and prognosis. Likely okay to continue with baseline medications. Defer to hospitalist for further management. group home at discharge, she was just discharged from [facility] in October and is tentatively going back there later today. This note was generated with [employer] dictation software. It may contain incorrect words, spelling, and punctuation that were not noted in checking the note before signing.
--- NOTE | 2017-12-21 10:01 | CASEMGMT ---
Patient will be d/c to [facility] today. PREET called [facility] and let Macario Adam on the coverage line know that patient will be d/c to [facility] today. PREET also called Vicky Morrow, patient's CM at [facility] and let her know the plan. Cassie CRUZ MSW
--- NOTE | 2017-12-21 11:33 | TREXTCAR_ITS ---
- Diet 12/19/17 11:14 Diet: Regular Diet Food consistency:: Mechanical Soft/Ground Liquid Consistency:: [place] Thick Dietary Modifications:: Mechanical Soft Diet [place] Thick Liquids Is pt able to select menu?: No Diet Comments: Supervision; seated upright at 90 degrees, meds w/ applesauce - Routine Orders/Code Status Suppository Type: Dulcolax 10mg Suppository Frequency: Daily PRN O2 Frequency: Continuous Routine Lab Work: CBC, BMP Code Status: DNC-A - Therapies Physical Therapy: Eval and Treat Occupational Therapy: Eval and Treat Speech Therapy: Eval and Treat - Problem/Diagnosis (1) Debility, unspecified Status: Acute Current Visit: Yes (2) Dementia, vascular Status: Chronic Current Visit: No (3) Hyperlipidemia Status: Chronic Current Visit: No (4) COPD (chronic obstructive pulmonary disease) Status: Chronic Current Visit: No (5) Obesity Status: Chronic Current Visit: No (6) Thrush, oral Status: Acute Current Visit: Yes (7) Dysphagia Status: Chronic Current Visit: Yes - Allergies/Procedures Done in Hospital Allergies/Adverse Reactions: Allergies adhesive tape Allergy (Verified 12/17/17 14:06) Rash codeine Allergy (Verified 12/17/17 14:06) Nausea Penicillins Allergy (Verified 12/17/17 14:06) Rash - Type of Care/Length of Stay Estimated LOS: Convalescent Care Less Than 30 days Type of Care Needed: Skilled Rehab Potential: Fair Prognosis: Fair - Additional Orders/Day of Discharge Day of Discharge: 12/21/17 - Dietary and Speech Recommendations Dietitian Recommendations/Changes: Suggest 1800 calorie-controlled, cardiac diet as needed once PO optimal at meals. - Follow Up Care Primary Care Physician: Care Physician,No Primary [NON-STAFF] - Please follow up with your Primary Care Physician in: 2 weeks
--- NOTE | 2017-12-21 11:58 | CASEMGMT ---
Faxed orders to [facility]. Completed convalescent on HENS. Called [facility] and arranged for patient to get picked up at 1p via cot. SW called [facility] and left a message for Noa. SW also notified RN, stock control supervisor, and patient's daughter. Plan: [facility] under skilled level of care on a convalescent stay. [facility] transported via cot. Cassie MARTÍNEZ
--- NOTE | 2017-12-21 12:41 | NURSING ---
REPORT CALLED TO APOORVA OSBORNE RN AT [facility]
--- NOTE | 2017-12-21 15:55 | PCM.DC.SUM ---
<Lee Wahl - Last Filed: 12/21/17 15:55> Discharge Date and Diagnosis Date of Admission: 12/17/17 Date of Discharge: 12/21/17 - Primary Discharge Diagnosis Debility, Weakness Hypotension - dehydration Vascular dementia COPD Hx Non-small cell Lung CA HTN HLD Dysphagia Thrush - Secondary Discharge Diagnosis Chronic Problems Dysphagia (Chronic) Failure to thrive in adult (Chronic) Hyperlipidemia (Chronic) Overactive bladder (Chronic) Glaucoma (Chronic) COPD (chronic obstructive pulmonary disease) (Chronic) Non-small cell lung cancer (Chronic) treated by chemo and radiation considered cured.....had mets to the brain and the brain was irradiated Cerebral microvascular disease (Chronic) severe Dementia, vascular (Chronic) Obesity (Chronic) Nodule of right lung (Chronic) stable Hospital Course and Treatment Imaging Results: RAD/Chest PA and Lateral IMPRESSION: Stable appearance of the chest with no acute pathology. RAD/Lumbar Spine 2 or 3 Views IMPRESSION: No acute abnormality of the lumbar spine. RAD/Chest 1 View (Portable) IMPRESSION: No pulmonary edema, congestive heart failure or confluent pneumonia. Stable hilar/vascular prominence. Echo: Interpretation Summary Normal LV size. Mild concentric left ventricular hypertrophy. Left ventricular systolic function is normal. The estimated ejection fraction is 70 %. Mild (1+) tricuspid valve insufficiency. Pulmonary artery systolic pressure is 46 mmHg. Trivial pericardial effusion. CT/Chest WITH Contrast IMPRESSION: Stable 2.3 x 1.8 cm right suprahilar nodule causing postobstructive atelectasis. Previously noted mediastinal lymph nodes have increased in size since the previous study, now measuring up to 1.3 cm in short axis dimension Small free-flowing bilateral pleural effusions Degenerative bony changes Fatty liver Consults: Racheal - CHERYL Smith/Joni - pulm/critical care Operations: None Procedures: 2-D Echocardiogram Summary of Care Provided: Physical exam on day of discharge: General: Resting comfortably NAD Psych: A/Ox3 normal affect HEENT: PEARRLA AT NC Neck: Supple NT CV: RRR no m/t/r/g/h Resp: CTA Abd: [id number] Soft NT no guarding or rigidity Ext: DP2+= no edema Skin: W/D normal turgor Lymph/Heme: No active bleeding or adenopathy Neuro: CN2-12 intact Hospital course: The patient is a 62 year old F with a hx of vascular dementia, COPD, HLD, non small cell lung CA in remission, who presented to the ER with weakness and falling at home. She lives with her daughter and had an unwitnessed fall at home. She was found with her walker tipped over on the floor with blankets around her. She did not remember the circumstances of the fall. She was brought to the ED and admitted for placement. She had very low blood pressure after admission and did not respond immediately to fluids. She was placed temporarily in the ICU during which her BP remained stable with IV fluids. Her low BP was felt to be 2/2 dehydration. She had low pulse ox while here but imaging was negative. She was given aerosols and she remained stable. She was seen by ID who did not feel she had any infectious process. She did have some thrush probably 2/2 her ICS and she was given nystatin for this. She had PTOT and ST evals and was determined to need skilled therapy for debility and further speech therapy with dietary modification for dysphagia. She was discharged to SNF in stable condition. This patient was seen by Lee Wahl PA-C under the supervision of Doctor Shukri. [] Discharge Diet: No Restrictions Discharge Activity: Return to Normal Activity Home Medications: Medications to take at Discharge Aspirin 81 mg PO DAILY 10/02/17 Donepezil HCl 10 mg PO QHS 10/02/17 Fluticasone/Vilanterol [Breo Ellipta 200-25 Mcg INH] 1 each IH DAILY 10/02/17 Latanoprost 0.005% [Xalatan Opthalmic] 1 drop EACH EYE QHS 10/02/17 Oxybutynin Chloride [Ditropan Xl] 5 mg PO DAILY 10/02/17 Potassium Chloride 20 meq PO BID 10/02/17 Pravastatin Sodium 40 mg PO DAILY 10/02/17 Ipratropium/Albuterol Sulfate [Duoneb] 3 ml INHALATION Q4H.RT ampul.neb 12/21/17 Magnesium Hydroxide [Milk Of Magnesia] 30 ml PO DAILY PRN PRN udc 12/21/17 Nystatin 500,000 unit PO 4X/DAY udc 12/21/17 Nystatin [Mycostatin] 1 applic TOPICAL BID tube 12/21/17 Primary Care Physician: Care Physician,No Primary [NON-STAFF] - Please follow up with your Primary Care Physician in: 2 weeks Disposition: Longterm facility Minutes spent on discharge:: 35 Patient Condition:: Stable Medical Necessity - Tobacco Use Smoking Status: Unknown if ever smoked Tobacco Use: Non-smoker Meaningful Use Info Meaningful Use Diagnoses (Choose all that apply): None applicable <Evelio Watt - Last Filed: 12/21/17 17:39> Discharge Date and Diagnosis - Secondary Discharge Diagnosis Chronic Problems Dysphagia (Chronic) Failure to thrive in adult (Chronic) Hyperlipidemia (Chronic) Overactive bladder (Chronic) Glaucoma (Chronic) COPD (chronic obstructive pulmonary disease) (Chronic) Non-small cell lung cancer (Chronic) treated by chemo and radiation considered cured.....had mets to the brain and the brain was irradiated Cerebral microvascular disease (Chronic) severe Dementia, vascular (Chronic) Obesity (Chronic) Nodule of right lung (Chronic) stable Hospital Course and Treatment Summary of Care Provided: This patient was seen in conjunction with Lee MYERS. I have independently interviewed and examined the patient and reviewed pertinent history, examination findings, laboratory and plan of management. I have reviewed the note and agree with the documented findings with the few additional points. In brief, patient is admitted for generalized weakness and failure to thrive. She was transferred to ICU for hypotension which is resolved now. blood culture shows gram-positive cocci which is deep throughout suggestive of contamination. Seen by infectious disease and recommended no antibiotic. Other sepsis workup including a respiratory panel, urine culture, C. difficile and group A Streptococcus rapid screen are negative. CT chest shows a stable 2.3 x 1.8 cm right suprahilar nodule causing postoperative atelectasis. Patient is DNR CC arrest with advanced dementia Total time spent, exact 32 minutes on discharge meds reconciliation, examination, review of imaging and blood test and discussion with the patient on follow-up instructions. I have discussed my assessment with Lee MYERS and orders have been reviewed. [] Code Visit Inpatient E&M: 15111 Disch Hosp
--- NOTE | 2017-12-21 16:04 | DS.PCM_ITS ---
<Lee Wahl - Last Filed: 12/21/17 15:55> Discharge Date and Diagnosis Date of Admission: 12/17/17 Date of Discharge: 12/21/17 - Primary Discharge Diagnosis Debility, Weakness Hypotension - dehydration Vascular dementia COPD Hx Non-small cell Lung CA HTN HLD Dysphagia Thrush - Secondary Discharge Diagnosis Chronic Problems Dysphagia (Chronic) Failure to thrive in adult (Chronic) Hyperlipidemia (Chronic) Overactive bladder (Chronic) Glaucoma (Chronic) COPD (chronic obstructive pulmonary disease) (Chronic) Non-small cell lung cancer (Chronic) treated by chemo and radiation considered cured.....had mets to the brain and the brain was irradiated Cerebral microvascular disease (Chronic) severe Dementia, vascular (Chronic) Obesity (Chronic) Nodule of right lung (Chronic) stable Hospital Course and Treatment Imaging Results: RAD/Chest PA and Lateral IMPRESSION: Stable appearance of the chest with no acute pathology. RAD/Lumbar Spine 2 or 3 Views IMPRESSION: No acute abnormality of the lumbar spine. RAD/Chest 1 View (Portable) IMPRESSION: No pulmonary edema, congestive heart failure or confluent pneumonia. Stable hilar/vascular prominence. Echo: Interpretation Summary Normal LV size. Mild concentric left ventricular hypertrophy. Left ventricular systolic function is normal. The estimated ejection fraction is 70 %. Mild (1+) tricuspid valve insufficiency. Pulmonary artery systolic pressure is 46 mmHg. Trivial pericardial effusion. CT/Chest WITH Contrast IMPRESSION: Stable 2.3 x 1.8 cm right suprahilar nodule causing postobstructive atelectasis. Previously noted mediastinal lymph nodes have increased in size since the previous study, now measuring up to 1.3 cm in short axis dimension Small free-flowing bilateral pleural effusions Degenerative bony changes Fatty liver Consults: Racheal - CHERYL Smith/Joni - pulm/critical care Operations: None Procedures: 2-D Echocardiogram Summary of Care Provided: Physical exam on day of discharge: General: Resting comfortably NAD Psych: A/Ox3 normal affect HEENT: PEARRLA AT NC Neck: Supple NT CV: RRR no m/t/r/g/h Resp: CTA Abd: [id number] Soft NT no guarding or rigidity Ext: DP2+= no edema Skin: W/D normal turgor Lymph/Heme: No active bleeding or adenopathy Neuro: CN2-12 intact Hospital course: The patient is a 62 year old F with a hx of vascular dementia, COPD, HLD, non small cell lung CA in remission, who presented to the ER with weakness and falling at home. She lives with her daughter and had an unwitnessed fall at home. She was found with her walker tipped over on the floor with blankets around her. She did not remember the circumstances of the fall. She was brought to the ED and admitted for placement. She had very low blood pressure after admission and did not respond immediately to fluids. She was placed temporarily in the ICU during which her BP remained stable with IV fluids. Her low BP was felt to be 2/2 dehydration. She had low pulse ox while here but imaging was negative. She was given aerosols and she remained stable. She was seen by ID who did not feel she had any infectious process. She did have some thrush probably 2/2 her ICS and she was given nystatin for this. She had PTOT and ST evals and was determined to need skilled therapy for debility and further speech therapy with dietary modification for dysphagia. She was discharged to SNF in stable condition. This patient was seen by Lee Wahl PA-C under the supervision of Doctor Shukri. [] Discharge Diet: No Restrictions Discharge Activity: Return to Normal Activity Home Medications: Medications to take at Discharge Aspirin 81 mg PO DAILY 10/02/17 Donepezil HCl 10 mg PO QHS 10/02/17 Fluticasone/Vilanterol [Breo Ellipta 200-25 Mcg INH] 1 each IH DAILY 10/02/17 Latanoprost 0.005% [Xalatan Opthalmic] 1 drop EACH EYE QHS 10/02/17 Oxybutynin Chloride [Ditropan Xl] 5 mg PO DAILY 10/02/17 Potassium Chloride 20 meq PO BID 10/02/17 Pravastatin Sodium 40 mg PO DAILY 10/02/17 Ipratropium/Albuterol Sulfate [Duoneb] 3 ml INHALATION Q4H.RT ampul.neb Magnesium Hydroxide [Milk Of Magnesia] 30 ml PO DAILY PRN PRN udc 12/21/17 Nystatin 500,000 unit PO 4X/DAY udc 12/21/17 Nystatin [Mycostatin] 1 applic TOPICAL BID tube 12/21/17 Primary Care Physician: Care Physician,No Primary [NON-STAFF] - Please follow up with your Primary Care Physician in: 2 weeks Disposition: Custodial facility Minutes spent on discharge:: 35 Patient Condition:: Stable Medical Necessity - Tobacco Use Smoking Status: Unknown if ever smoked Tobacco Use: Non-smoker Meaningful Use Info Meaningful Use Diagnoses (Choose all that apply): None applicable <Evelio Watt - Last Filed: 12/21/17 17:39> Discharge Date and Diagnosis - Secondary Discharge Diagnosis Chronic Problems Dysphagia (Chronic) Failure to thrive in adult (Chronic) Hyperlipidemia (Chronic) Overactive bladder (Chronic) Glaucoma (Chronic) COPD (chronic obstructive pulmonary disease) (Chronic) Non-small cell lung cancer (Chronic) treated by chemo and radiation considered cured.....had mets to the brain and the brain was irradiated Cerebral microvascular disease (Chronic) severe Dementia, vascular (Chronic) Obesity (Chronic) Nodule of right lung (Chronic) stable Hospital Course and Treatment Summary of Care Provided: This patient was seen in conjunction with Lee MYERS. I have independently interviewed and examined the patient and reviewed pertinent history, examination findings, laboratory and plan of management. I have reviewed the note and agree with the documented findings with the few additional points. In brief, patient is admitted for generalized weakness and failure to thrive. She was transferred to ICU for hypotension which is resolved now. blood culture shows gram-positive cocci which is deep throughout suggestive of contamination. Seen by infectious disease and recommended no antibiotic. Other sepsis workup including a respiratory panel, urine culture, C. difficile and group A Streptococcus rapid screen are negative. CT chest shows a stable 2.3 x 1.8 cm right suprahilar nodule causing postoperative atelectasis. Patient is DNR CC arrest with advanced dementia Total time spent, exact 32 minutes on discharge meds reconciliation, examination , review of imaging and blood test and discussion with the patient on follow-up instructions. I have discussed my assessment with Lee MYERS and orders have been reviewed. [] Code Visit Inpatient E&M: 94778 Disch Hosp
== END 2017-12-21 13:02 | disposition skilled nursing facility (03) | DRG 641 ==
LOC: ED 15:48 → MS3 16:08 → ICU 12-18 13:46 → PCU 12-19 20:33 → ICU 12-21 07:13
PROVIDERS: Physician Assistant; Admitting Provider Internal Medicine; Emergency Provider Emergency Medicine; Family Provider Family Medicine; PCP Family Medicine; Visit Provider Internal Medicine
DX: E86.0 Dehydration (principal); B37.0 Candidal stomatitis; I95.9 Hypotension, unspecified; F01.50 Vascular dementia, unspecified severity, without behavioral disturbance, psychotic disturbance, mood disturbance, and anxiety; R13.10 Dysphagia, unspecified; R53.1 Weakness; R53.81 Other malaise; R62.7 Adult failure to thrive; E66.9 Obesity, unspecified; E78.5 Hyperlipidemia, unspecified; J44.9 Chronic obstructive pulmonary disease, unspecified; Z85.118 Personal history of other malignant neoplasm of bronchus and lung; W18.30XA Fall on same level, unspecified, initial encounter; Y92.009 Unspecified place in unspecified non-institutional (private) residence as the place of occurrence of the external cause; Z92.3 Personal history of irradiation; Z92.21 Personal history of antineoplastic chemotherapy; Z68.37 Body mass index [BMI] 37.0-37.9, adult; Y93.01 Activity, walking, marching and hiking; H40.9 Unspecified glaucoma; I10 Essential (primary) hypertension; N32.81 Overactive bladder; R91.1 Solitary pulmonary nodule
CPT/HCPCS: 36415; 71045; 71046; 71260; 72100; 80048; 81001; 82274; 83605; 83880; 84443; 85025; 87040; 87086; 87493; 87633; 87804; 87880; 92526; 93005; 93306; 94640; 97162; 97166; 97530; 97535; 97802; 99285; J7030; Q9967; A4216

== ENCOUNTER 2018-05-01 14:41 | Inpatient (IN) | payer MEDICARE, MEDICAID, SELFPAY ==
[2018-05-01] VITALS (10 sets, daily range): BP systolic 130–149; BP diastolic 86–109; PULSE 70–94; RESP 16–22; TEMP 37.1–37.2; O2SAT 84–98; BMI 35.9; BMI 35.2
--- NOTE | 2018-05-01 14:57 | ED.VISSUMM ---
- ER Visit Summary Date of Service: 05/01/18 Chief Complaint: History of Present Illness: The patient is a 63 F who presents with confusion this been worsening over the past week, she was seen by her PCP earlier today noticed a oxygen saturation of 83%. Patient actually denies any shortness of breath, cough or any recent fever or chills. She has dementia but this is somewhat different, she is more confused, acting bizarre waking up in the middle the night and try to get out of her house. Physical Examination: Not appear in acute distress. Dry mucous membranes, no obvious facial deformity No C-spine tenderness supple neck. Regular rate and rhythm without any obvious murmurs Clear lungs bilaterally speaking in full sentences without any obvious respiratory distress Abdomen soft and nontender no guarding or rebound Moves all extremities without any difficulty or pain. There is paraspinal back tenderness in the lumbar region but no spinal tenderness full range of motion. Skin does not show any obvious rashes or lesions, no trauma. Alert oriented ?3 with no gross focal deficit. She is oriented to person and place disoriented to year. Emergency Department Course and Treatment: Patient continues to be hypoxic in the emergency department, a CT angiogram does not show any evidence of PE, this is likely chronic and will need home oxygen, however I cannot do this right now therefore patient will be admitted for further studies and oxygen treatment. Treatment Plan: [Admit stable condition] Impression: [Hypoxia] This note was generated with [employer] dictation software. It may contain incorrect words, spelling, and punctuation that were not noted in review of the chart prior to signing ED Disposition - Plan for ED Patient: Chief Complaint: Shortness of Breath Referrals: Luis A Velasquez MD [Primary Care Provider] -
--- NOTE | 2018-05-01 15:33 | RAD_ITS ---
STUDY: X-RAY CHEST REASON FOR EXAM: Female, 63 years old. Hypoxia. COPD. History of lung cancer. TECHNIQUE: Frontal and lateral views of the chest. COMPARISON: December 17, 2017 FINDINGS: There is an indeterminate retrocardiac opacity projecting over the lower thoracic spine. The lungs remain hyperinflated. There are stable prominent interstitial markings. Normal size heart. There is stable perihilar fullness. Normal visualized aortic arch and descending thoracic aorta. Normal visualized thoracic spine. Normal visualized ribs, clavicles, and shoulders. There is no demonstrated abnormality of the visualized soft tissue structures of the upper abdomen. RAD/Chest PA and Lateral IMPRESSION: Indeterminate retrocardiac opacity, may be secondary to a confluence of shadows however cannot exclude an underlying pulmonary nodule and/or consolidation, consider CT for further characterization. Electronically Signed: Salma Ortega MD at 16:26 EDT Tel , Service support ,
[2018-05-01 16:08] LABS: ALB/GLOB Ratio 0.9 RATIO (0.9-2.4); AST(SGOT) 64 U/L (15-37); Alanine Aminotransfer ALT/SGPT 46 U/L (13-56); Albumin, Serum 3.7 g/dL (3.2-5.0); Alkaline Phosphatase 128 U/L (45-117); Anion Gap 6 (5-15); BUN 17 mg/dL (7-18); BUN/Creat Ratio 23.3 RATIO (10-20); Calcium,Total 8.5 mg/dL (8.5-10.1); Chloride 110 mmol/L (98-107); Creatinine, Serum 0.73 mg/dL (0.55-1.02); EST Glomerular Filtration Rate 86 mL/min (>60); Est Glom Filt Rate - Afr Amer 104 mL/min (>60); Estimated Creatinine Clearance 69.88 ml/min; Globulin 3.9 g/dL (2.2-4.2); Glucose 132 mg/dL (74-106); Potassium 3.3 mmol/L (3.5-5.1); Protein, Total 7.6 g/dL (6.4-8.2); Sodium Level 144 mmol/L (136-145)
[2018-05-01 16:12] LABS: Basophil# 0.03 X10^3/uL; Basophil% 0.5 % (0-1); Eosinophil# 0.09 X10^3/uL; Eosinophils% 1.4 % (0-5); Hematocrit 44.2 % (37-47); Hemoglobin 14.1 g/dl (12.0-15.0); Lymphocyte % 26.6 % (19-41); Mean Corp Hgb Conc 31.9 g/gl (32-36); Mean Corpuscular Hgb 28.9 pg (27.0-32.0); Mean Corpuscular Volume 90.6 fL (81-99); Mean Platelet Vol. 11.1 fl (6.2-12.0); Monocyte# 0.53 X10^3/uL; Monocyte% 8.3 % (0-10); Neutrophil # 4.02 X10^3/uL (2.7-7.7); Neutrophil % 62.9 % (47-70); Platelet Count 213 K/mm3 (150-450); RBC Distribution Width CV 13.6 % (11.6-14.6); RBC Distribution Width SD 44.7 fl (35.1-43.9); Red Blood Count 4.88 M/mm3 (4.2-5.4); White Blood Count 6.4 K/mm3 (4.4-11.0)
[2018-05-01 16:14] LABS: POSITIVE COUNT NO; POSITIVE DIFFERENTIAL NO; POSITIVE MORPHOLOGY NO
[2018-05-01 16:41] LABS: Lactic Acid 1.2 mmol/L (0.4-2.0)
[2018-05-01 16:44] LABS: Color, Urine Yellow (Yellow); Glucose, Dipstick Normal (Normal); Ketone-Dipstick 5 mg/dl (Negative); Leukocyte Esterase-Dipstick 500 /ul (Negative); Nitrite-Dipstick Positive (Negative); Occult Blood-Urine 10 /ul (Negative); Protein-Dipstick 15 mg/dl (Negative); Urine Bilirubin Dipstick Negative (Negative); Urine Clarity Cloudy (Clear); Urine Urobilinogen Normal (Normal)
--- NOTE | 2018-05-01 16:57 | CT_ITS ---
STUDY: CTA CHEST REASON FOR EXAM: Female, 63 years old. Hypoxia. History of lung cancer. RADIATION DOSAGE (If Supplied By Facility): CTDIvol = ( 17.30 ) mGy, DLP = ( 628.20 ) mGycm TECHNIQUE: The examination was performed with the intravenous administration of 75ml ml of Isovue 370 contrast material. Post-processing of the angiographic images was performed, with multiplanar reformation and 3D reconstruction. Individualized dose optimization techniques were used for this CT. COMPARISON: December 19, 2017 FINDINGS: Normal enhancement of the main pulmonary artery and right and left pulmonary arteries. Normal enhancement of the bilateral peripheral pulmonary arteries. There is no demonstrated pulmonary embolism. Normal thoracic aorta and visualized great vessels. There is no demonstrated aortic dissection. There are calcifications of the coronary arteries. Normal mediastinum. Normal hilar regions. Normal visualized trachea and bronchi. There is stable opacity emanating from the right hilar region extending into the region of the right middle lobe. There is no new focal consolidation. There is minimal left basilar atelectasis and/or scarring. There appear to be postsurgical changes within the left lower lung. Normal chest wall structures. There are degenerative changes of thoracic spine. Stable visualized upper abdomen. CT/CTA Chest W/WO Contrast IMPRESSION: No demonstrated pulmonary embolism or arterial dissection. No new focal consolidation. Stable scarring and/or atelectasis within the right lung. Atherosclerosis. Electronically Signed: Salma Ortega MD at 17:56 EDT Tel , Service support ,
[2018-05-01 17:04] LABS: Squamous Epithelial Cells - UA 0-5 SEEN /hpf (5-10); White Blood Cells 50-100 SEEN /hpf (0-5)
[2018-05-01 17:05] LABS: Bacteria 4+ /hpf (None Seen); Mucous, Urine 4+ /hpf (<or=2+); Red Blood Cells-Urine 5-10 SEEN /hpf (0-5)
--- NOTE | 2018-05-01 19:33 | PCM.HP.STD ---
Problem List (1) Acute respiratory failure with hypoxia Status: Acute (2) UTI (urinary tract infection) Status: Acute (3) Metabolic encephalopathy Status: Acute History of Present Illness Date of Admission: 05/01/18 Chief Complaint: confusion The patient is a 63 year old F with history of dementia presents with increasing confusion. The daughter was concerned when patient asked more confused that it could be urinary tract infection so to the patient to her primary care doctor's office. Patient was noted to be hypoxic at 84% and then directed to the emergency room. Patient was 84% on room air and then improved to the mid 90s on oxygen. Patient did have a urinary tract infection and ciprofloxacin was ordered. Patient did undergo a CT imaging of the chest that showed no acute new process. Patient denies any respiratory issues. Patient has dementia and confusion at baseline but really denies any other new complaints. [] Past Medical History Past Medical History (Chronic Problems): Chronic Problems Dysphagia (Chronic) Failure to thrive in adult (Chronic) Hyperlipidemia (Chronic) Overactive bladder (Chronic) Glaucoma (Chronic) COPD (chronic obstructive pulmonary disease) (Chronic) Non-small cell lung cancer (Chronic) treated by chemo and radiation considered cured.....had mets to the brain and the brain was irradiated Cerebral microvascular disease (Chronic) severe Dementia, vascular (Chronic) Obesity (Chronic) Nodule of right lung (Chronic) stable Allergies adhesive tape Allergy (Verified 05/01/18 14:42) Rash codeine Allergy (Verified 05/01/18 14:42) Nausea Penicillins Allergy (Verified 05/01/18 14:42) Rash Home Medications: Ambulatory Orders Medication Instructions Recorded Aspirin 81 mg PO DAILY 10/02/17 Donepezil HCl 10 mg PO QHS 10/02/17 Fluticasone/Vilanterol [Breo 1 each IH DAILY 10/02/17 Ellipta 200-25 Mcg INH] Latanoprost 0.005% [Xalatan 1 drop EACH EYE QHS 10/02/17 Opthalmic] Oxybutynin Chloride [Ditropan Xl] 5 mg PO DAILY 10/02/17 Pravastatin Sodium 40 mg PO DAILY 10/02/17 Potassium Chloride [Klor-Con M20] 20 meq PO BID 05/01/18 Surgical History: cholecystectomy, hysterectomy, - - port for chemo, possible resection of lung in 2001 when diagnosed with non small cell lung CA Psychiatric History: No pertinent psych hx 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 Paternal Family History: Family History (Last Updated 05/01/18 @ 19:35 by Trevor Nguyen DO) Other COPD (chronic obstructive pulmonary disease) History Items: No pertinent history - Patient unable to provide family health information. Review of Systems Constitutional: Reports: Weakness. Denies: Anorexia, Chills, Fever Eyes: Denies: Blurred vision, Double vision HEENT: Denies: Head Aches, Sinus Congestion, Sinus Drainage Cardiovascular: Denies: Chest Pain, Palpitations Respiratory: Reports: Cough. Denies: Shortness of Breath Gastrointestinal: Denies: Abdominal Pain, Nausea, Vomiting Genitourinary: Denies: Dysuria Musculoskeletal: Denies: Joint Pain, Joint Tenderness Skin: Denies: Rash, Wounds Neurological: Reports: Balance problems Psychiatric: Denies: Anxiety, Depression Endocrine: Reports: Change in Body Habitus - has lost a few pounds recently. Hematologic/ Lymphatic: Denies: Easy Bruising, Easy Bleeding, Hx of blood clot Comment: All review of systems are negative except as mentioned in the history of present illness and the other review of systems. VTE Information - Inpt Only VTE Present on Admission: No VTE Mechan Device Prophylaxis: None VTE Pharm Prophylaxis ordered?: Yes Patient Problems: Active and Suspected Problems Acute respiratory failure with hypoxia (Acute) UTI (urinary tract infection) (Acute) Metabolic encephalopathy (Acute) - Physical Exam General: Alert, Cooperative, No apparent distress HEENT: Atraumatic, Normocephalic Oral: Moist Mucosa, No Gingival or Mucosal Lesions/ Ulcerations Neck: No Nodes, Thyroid Normal Size and Texture Lungs: Diminished, - - Few bibasilar crackles Cardiovascular: Regular rate, Regular Rhythm, Normal S1, Normal S2 Abdomen: Bowel Sounds Present, Soft, Non Tender, Non-Distended, No Hepato-splenomegaly Extremities: No Calf Tenderness, Edema - Trace Skin: No rashes, No breakdown Musculoskeletal: No Tenderness to Palpation of Joints or Extremities, No Muscle Wasting Neurological: Neuro grossly intact, Sensory exam intact to light touch and pain, Coordination normal Psych/Mental Status: Normal Affect, Appropriate Vital Signs Temp Pulse Resp BP Pulse Ox 37.2 C 77 19 H 130/109 H 96 05/01/18 14:43 05/01/18 17:02 05/01/18 17:02 05/01/18 17:02 05/01/18 17:02 Oxygen Flow Rate (L/min) 2 Oxygen Delivery Method Nasal Cannula Weight: 95 kg Body Mass Index (BMI) 35.9 Finger Stick Blood Glucose 78 Laboratory Tests Past 24 Hrs 05/01/18 05/01/18 05/01/18 15:00 15:00 15:00 WBC 6.4 RBC 4.88 Hgb 14.1 Hct 44.2 MCV 90.6 MCH 28.9 MCHC 31.9 L RDW 13.6 RDW Differential 44.7 H Plt Count 213 MPV 11.1 Immature Gran % (Auto) 0.300 Neut % (Auto) 62.9 Lymph % (Auto) 26.6 [place] % (Auto) 8.3 Eos % (Auto) 1.4 Baso % (Auto) 0.5 Absolute Neuts (auto) 4.0 Absolute Lymphs (auto) 1.70 Total Counted Not Reportable Sodium 144 Potassium 3.3 L Chloride 110 H Carbon Dioxide 28.0 Anion Gap 6 BUN 17 Creatinine 0.73 Estim Creat Clear Calc 69.88 Est GFR (MDRD) Af Amer 104 Est GFR (MDRD) Non-Af 86 BUN/Creatinine Ratio 23.3 H Glucose 132 H Lactic Acid 1.2 Calcium 8.5 Total Bilirubin 0.60 AST 64 H ALT 46 Alkaline Phosphatase 128 H Troponin I < 0.015 Total Protein 7.6 Albumin 3.7 Globulin 3.9 Albumin/Globulin Ratio 0.9 Urine Color Urine Clarity Urine pH Ur Specific [place] U Specif Grav (Refrac) Urine Protein Urine Glucose (UA) Urine Ketones Urine Occult Blood Urine Nitrite Urine Bilirubin Urine Urobilinogen Ur Leukocyte Esterase Urine RBC Urine WBC Ur Squamous Epith Cells Urine Bacteria Urine Mucus 05/01/18 05/01/18 16:30 16:30 WBC RBC Hgb Hct MCV MCH MCHC RDW RDW Differential Plt Count MPV Immature Gran % (Auto) Neut % (Auto) Lymph % (Auto) [place] % (Auto) Eos % (Auto) Baso % (Auto) Absolute Neuts (auto) Absolute Lymphs (auto) Total Counted Sodium Potassium Chloride Carbon Dioxide Anion Gap BUN Creatinine Estim Creat Clear Calc Est GFR (MDRD) Af Amer Est GFR (MDRD) Non-Af BUN/Creatinine Ratio Glucose Lactic Acid Calcium Total Bilirubin AST ALT Alkaline Phosphatase Troponin I Total Protein Albumin Globulin Albumin/Globulin Ratio Urine Color Cancelled Yellow Urine Clarity Cancelled Cloudy Urine pH Cancelled 5.0 Ur Specific [place] Cancelled 1.020 U Specif Grav (Refrac) Cancelled Urine Protein Cancelled 15 H Urine Glucose (UA) Cancelled Normal Urine Ketones Cancelled 5 H Urine Occult Blood Cancelled 10 H Urine Nitrite Cancelled Positive H Urine Bilirubin Cancelled Negative Urine Urobilinogen Cancelled Normal Ur Leukocyte Esterase Cancelled 500 H Urine RBC 5-10 SEEN Urine WBC 50-100 SEEN Ur Squamous Epith Cells 0-5 SEEN Urine Bacteria 4+ Urine Mucus 4+ CT chest reviewed and showed some chronic scarring in the right base unchanged from November of this year. Assessment/Plan All Active Problems Thrush, oral (Acute) Acute respiratory failure with hypoxia (Acute) UTI (urinary tract infection) (Acute) Metabolic encephalopathy (Acute) Fall (Acute) Physical deconditioning (Acute) Debility, unspecified (Acute) Acute CVA (cerebrovascular accident) (Resolved) Dehydration (Resolved) Fracture, humerus closed (Resolved) Gastroenteritis (Resolved) Hypokalemia (Resolved) 1. Acute hypoxic respiratory failure Patient came in with pulse ox of 84% to her primary care doctor as well as the emergency room Patient has some chronic changes on the CAT scan and exam was pretty unremarkable. Put the patient on aerosols Check and amatory pulse ox Suspect this may relate to the patient's COPD Patient does not have a fever nor white count so I am not going to start her on a ask for potential pneumonia 2. UTI Check urine culture Continue ciprofloxacin 3. Metabolic encephalopathy Patient was having confusion at home getting up in the middle of night and doing bizarre behaviors Likely related patient's urinary tract infection on top of her underlying dementia 4. DVT prophylaxis with Lovenox 5. Advanced care planning: Discussed with the patient's daughter at bedside. Patient is a DNR Comfort Care arrest. Daughter is unsure about intubation at this time therefore patient be permitted to be intubated in the event of acute respiratory failure, at this time. Code Visit Inpatient E&M: 72119 Init Hosp L3
--- NOTE | 2018-05-01 19:37 | HP.PCM_ITS ---
Problem List (1) Acute respiratory failure with hypoxia Status: Acute (2) UTI (urinary tract infection) Status: Acute (3) Metabolic encephalopathy Status: Acute History of Present Illness Date of Admission: 05/01/18 Chief Complaint: confusion The patient is a 63 year old F with history of dementia presents with increasing confusion. The daughter was concerned when patient asked more confused that it could be urinary tract infection so to the patient to her primary care doctor's office. Patient was noted to be hypoxic at 84% and then directed to the emergency room. Patient was 84% on room air and then improved to the mid 90s on oxygen. Patient did have a urinary tract infection and ciprofloxacin was ordered. Patient did undergo a CT imaging of the chest that showed no acute new process. Patient denies any respiratory issues. Patient has dementia and confusion at baseline but really denies any other new complaints. [] Past Medical History Past Medical History (Chronic Problems): Chronic Problems Dysphagia (Chronic) Failure to thrive in adult (Chronic) Hyperlipidemia (Chronic) Overactive bladder (Chronic) Glaucoma (Chronic) COPD (chronic obstructive pulmonary disease) (Chronic) Non-small cell lung cancer (Chronic) treated by chemo and radiation considered cured.....had mets to the brain and the brain was irradiated Cerebral microvascular disease (Chronic) severe Dementia, vascular (Chronic) Obesity (Chronic) Nodule of right lung (Chronic) stable Allergies adhesive tape Allergy (Verified 05/01/18 14:42) Rash codeine Allergy (Verified 05/01/18 14:42) Nausea Penicillins Allergy (Verified 05/01/18 14:42) Rash Home Medications: Ambulatory Orders Medication Instructions Recorded Aspirin 81 mg PO DAILY 10/02/17 Donepezil HCl 10 mg PO QHS 10/02/17 Fluticasone/Vilanterol [Breo 1 each IH DAILY 10/02/17 Ellipta 200-25 Mcg INH] Latanoprost 0.005% [Xalatan 1 drop EACH EYE QHS 10/02/17 Opthalmic] Oxybutynin Chloride [Ditropan Xl] 5 mg PO DAILY 10/02/17 Pravastatin Sodium 40 mg PO DAILY 10/02/17 Potassium Chloride [Klor-Con M20] 20 meq PO BID 05/01/18 Surgical History: cholecystectomy, hysterectomy, - - port for chemo, possible resection of lung in 2001 when diagnosed with non small cell lung CA Psychiatric History: No pertinent psych hx 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 Paternal Family History: Family History (Last Updated 05/01/18 @ 19:35 by Trevor Nguyen DO) Other COPD (chronic obstructive pulmonary disease) History Items: No pertinent history - Patient unable to provide family health information. Review of Systems Constitutional: Reports: Weakness. Denies: Anorexia, Chills, Fever Eyes: Denies: Blurred vision, Double vision HEENT: Denies: Head Aches, Sinus Congestion, Sinus Drainage Cardiovascular: Denies: Chest Pain, Palpitations Respiratory: Reports: Cough. Denies: Shortness of Breath Gastrointestinal: Denies: Abdominal Pain, Nausea, Vomiting Genitourinary: Denies: Dysuria Musculoskeletal: Denies: Joint Pain, Joint Tenderness Skin: Denies: Rash, Wounds Neurological: Reports: Balance problems Psychiatric: Denies: Anxiety, Depression Endocrine: Reports: Change in Body Habitus - has lost a few pounds recently. Hematologic/ Lymphatic: Denies: Easy Bruising, Easy Bleeding, Hx of blood clot Comment: All review of systems are negative except as mentioned in the history of present illness and the other review of systems. VTE Information - Inpt Only VTE Present on Admission: No VTE Mechan Device Prophylaxis: None VTE Pharm Prophylaxis ordered?: Yes Patient Problems: Active and Suspected Problems Acute respiratory failure with hypoxia (Acute) UTI (urinary tract infection) (Acute) Metabolic encephalopathy (Acute) - Physical Exam General: Alert, Cooperative, No apparent distress HEENT: Atraumatic, Normocephalic Oral: Moist Mucosa, No Gingival or Mucosal Lesions/ Ulcerations Neck: No Nodes, Thyroid Normal Size and Texture Lungs: Diminished, - - Few bibasilar crackles Cardiovascular: Regular rate, Regular Rhythm, Normal S1, Normal S2 Abdomen: Bowel Sounds Present, Soft, Non Tender, Non-Distended, No Hepato- splenomegaly Extremities: No Calf Tenderness, Edema - Trace Skin: No rashes, No breakdown Musculoskeletal: No Tenderness to Palpation of Joints or Extremities, No Muscle Wasting Neurological: Neuro grossly intact, Sensory exam intact to light touch and pain , Coordination normal Psych/Mental Status: Normal Affect, Appropriate Vital Signs Temp Pulse Resp BP Pulse Ox 37.2 C 77 19 H 130/109 H 96 05/01/18 14:43 05/01/18 17:02 05/01/18 17:02 05/01/18 17:02 05/01/18 17:02 Oxygen Flow Rate (L/min) 2 Oxygen Delivery Method Nasal Cannula Weight: 95 kg Body Mass Index (BMI) 35.9 Finger Stick Blood Glucose 78 Laboratory Tests Past 24 Hrs 05/01/18 05/01/18 05/01/18 15:00 15:00 15:00 WBC 6.4 RBC 4.88 Hgb 14.1 Hct 44.2 MCV 90.6 MCH 28.9 MCHC 31.9 L RDW 13.6 RDW Differential 44.7 H Plt Count 213 MPV 11.1 Immature Gran % (Auto) 0.300 Neut % (Auto) 62.9 Lymph % (Auto) 26.6 [place] % (Auto) 8.3 Eos % (Auto) 1.4 Baso % (Auto) 0.5 Absolute Neuts (auto) 4.0 Absolute Lymphs (auto) 1.70 Total Counted Not Reportable Sodium 144 Potassium 3.3 L Chloride 110 H Carbon Dioxide 28.0 Anion Gap 6 BUN 17 Creatinine 0.73 Estim Creat Clear Calc 69.88 Est GFR (MDRD) Af Amer 104 Est GFR (MDRD) Non-Af 86 BUN/Creatinine Ratio 23.3 H Glucose 132 H Lactic Acid 1.2 Calcium 8.5 Total Bilirubin 0.60 AST 64 H ALT 46 Alkaline Phosphatase 128 H Troponin I < 0.015 Total Protein 7.6 Albumin 3.7 Globulin 3.9 Albumin/Globulin Ratio 0.9 Urine Color Urine Clarity Urine pH Ur Specific [place] U Specif Grav (Refrac) Urine Protein Urine Glucose (UA) Urine Ketones Urine Occult Blood Urine Nitrite Urine Bilirubin Urine Urobilinogen Ur Leukocyte Esterase Urine RBC Urine WBC Ur Squamous Epith Cells Urine Bacteria Urine Mucus 05/01/18 05/01/18 16:30 16:30 WBC RBC Hgb Hct MCV MCH MCHC RDW RDW Differential Plt Count MPV Immature Gran % (Auto) Neut % (Auto) Lymph % (Auto) [place] % (Auto) Eos % (Auto) Baso % (Auto) Absolute Neuts (auto) Absolute Lymphs (auto) Total Counted Sodium Potassium Chloride Carbon Dioxide Anion Gap BUN Creatinine Estim Creat Clear Calc Est GFR (MDRD) Af Amer Est GFR (MDRD) Non-Af BUN/Creatinine Ratio Glucose Lactic Acid Calcium Total Bilirubin AST ALT Alkaline Phosphatase Troponin I Total Protein Albumin Globulin Albumin/Globulin Ratio Urine Color Cancelled Yellow Urine Clarity Cancelled Cloudy Urine pH Cancelled 5.0 Ur Specific [place] Cancelled 1.020 U Specif Grav (Refrac) Cancelled Urine Protein Cancelled 15 H Urine Glucose (UA) Cancelled Normal Urine Ketones Cancelled 5 H Urine Occult Blood Cancelled 10 H Urine Nitrite Cancelled Positive H Urine Bilirubin Cancelled Negative Urine Urobilinogen Cancelled Normal Ur Leukocyte Esterase Cancelled 500 H Urine RBC 5-10 SEEN Urine WBC 50-100 SEEN Ur Squamous Epith Cells 0-5 SEEN Urine Bacteria 4+ Urine Mucus 4+ CT chest reviewed and showed some chronic scarring in the right base unchanged from November of this year. Assessment/Plan All Active Problems Thrush, oral (Acute) Acute respiratory failure with hypoxia (Acute) UTI (urinary tract infection) (Acute) Metabolic encephalopathy (Acute) Fall (Acute) Physical deconditioning (Acute) Debility, unspecified (Acute) Acute CVA (cerebrovascular accident) (Resolved) Dehydration (Resolved) Fracture, humerus closed (Resolved) Gastroenteritis (Resolved) Hypokalemia (Resolved) 1. Acute hypoxic respiratory failure * Patient came in with pulse ox of 84% to her primary care doctor as well as the emergency room * Patient has some chronic changes on the CAT scan and exam was pretty unremarkable. * Put the patient on aerosols * Check and amatory pulse ox * Suspect this may relate to the patient's COPD * Patient does not have a fever nor white count so I am not going to start her on a ask for potential pneumonia 2. UTI * Check urine culture * Continue ciprofloxacin 3. Metabolic encephalopathy * Patient was having confusion at home getting up in the middle of night and doing bizarre behaviors * Likely related patient's urinary tract infection on top of her underlying dementia 4. DVT prophylaxis with Lovenox 5. Advanced care planning: Discussed with the patient's daughter at bedside. Patient is a DNR Comfort Care arrest. Daughter is unsure about intubation at this time therefore patient be permitted to be intubated in the event of acute respiratory failure, at this time. Code Visit Inpatient E&M: 42577 Init Hosp L3
[2018-05-01] MEDS: Latanoprost 0.005% 1 Bottle 1 DRP EACH EYE (22:29)
[2018-05-01] MEDS: Pravastatin 40 MG Tablet PO (22:29)
[2018-05-01] MEDS: Donepezil HCl 10 MG Tablet PO (22:29)
[2018-05-01] MEDS: Ipratropium/Albuterol Sulfate 3 ML AMPUL.NEB INHALATION (23:15)
[2018-05-01] MEDS: Budesonide Respules 0.5 MG/2 ML AMPUL.NEB. INHALATION (23:15)
[2018-05-02] VITALS (9 sets, daily range): BP systolic 116–156; BP diastolic 71–94; PULSE 74–84; RESP 16–18; TEMP 36.3–36.9; O2SAT 90–96
[2018-05-02] MEDS: Budesonide Respules 0.5 MG/2 ML AMPUL.NEB. INHALATION ×2 (07:00→19:49)
[2018-05-02] MEDS: Ipratropium/Albuterol Sulfate 3 ML AMPUL.NEB INHALATION ×4 (07:00→19:49)
[2018-05-02 07:06] LABS: Anion Gap 10 (5-15); BUN 12 mg/dL (7-18); BUN/Creat Ratio 21.1 RATIO (10-20); Calcium,Total 8.2 mg/dL (8.5-10.1); Chloride 108 mmol/L (98-107); Creatinine, Serum 0.57 mg/dL (0.55-1.02); EST Glomerular Filtration Rate 115 mL/min (>60); Est Glom Filt Rate - Afr Amer 139 mL/min (>60); Glucose 91 mg/dL (74-106); Sodium Level 145 mmol/L (136-145); Thyroid Stim Hormone (TSH) 5.68 uIU/mL (0.358-3.74)
--- NOTE | 2018-05-02 08:42 | PCM.PROGNOTE ---
Patient Problems: Active and Suspected Problems UTI (urinary tract infection) (Acute) Metabolic encephalopathy (Acute) Subjective: Chief complaint: Follow-up after admission for acute cystitis, encephalopathy and hypoxia. Patient seen and examined. No acute events overnight. This morning, she is alert and oriented ?2. She knows her full name, date of and she knows what she at. She is not sure about date. Denied any symptoms. She is afebrile, blood pressure stable, pulse ox is 95% on room air. - Physical Exam General: Alert, Cooperative, No apparent distress, - - Oriented ?2. HEENT: Atraumatic, PERRLA, EOMI, Normocephalic Oral: Moist Mucosa, No Gingival or Mucosal Lesions/ Ulcerations Neck: Supple, No JVD, Negative Carotid Bruits, Trachea Midline, Thyroid Normal Size and Texture Lungs: Clear to auscultation, No rhonchi, No wheeze, No rales, Diminished Cardiovascular: Regular rate, Regular Rhythm, Normal S1, Normal S2, PMI Normal Abdomen: Bowel Sounds Present, Soft, Non Tender, Non-Distended, No Hepato-splenomegaly Extremities: No clubbing, No cyanosis, No edema Skin: No rashes, No breakdown Lymphatic: No Cervical, Supraclavicular, or Inguinal Adenopathy Neurological: Cranial nerves II-XII grossly intact, Motor Exam 5/5 strength throughout Psych/Mental Status: Normal Affect, Appropriate Vital Signs Temp Pulse Resp BP Pulse Ox 98.4 F 76 16 118/83 H 95 05/02/18 02:58 05/02/18 02:58 05/02/18 02:58 05/02/18 02:58 05/02/18 02:58 Oxygen Flow Rate (L/min) 2 Oxygen Delivery Method Room Air Weight: 205 lb 9 oz Body Mass Index (BMI) 35.2 Intake and Output for Last 24 Hours 04/30/18 05/01/18 05/02/18 23:59 23:59 23:59 Intake Total 519 / 519 Balance 519 / 519 Laboratory Tests Past 24 Hrs 05/02/18 05/02/18 06:12 06:12 Sodium 145 Potassium 4.0 Chloride 108 H Carbon Dioxide 27.0 Anion Gap 10 BUN 12 Creatinine 0.57 Estim Creat Clear Calc 89.50 Est GFR (MDRD) Af Amer 139 Est GFR (MDRD) Non-Af 115 BUN/Creatinine Ratio 21.1 H Glucose 91 Calcium 8.2 L Vitamin B12 Pending Vitamin D 25-Hydroxy Pending Folate 12.20 TSH 5.68 H Clinical Impression(s) from Imaging Studies Chest X-Ray 05/01/18 15:33 IMPRESSION: Indeterminate retrocardiac opacity, may be secondary to a confluence of shadows however cannot exclude an underlying pulmonary nodule and/or consolidation, consider CT for further characterization. Electronically Signed: Salma Ortega MD at 16:26 EDT Tel , Service support , Chest CTA 05/01/18 16:57 IMPRESSION: No demonstrated pulmonary embolism or arterial dissection. No new focal consolidation. Stable scarring and/or atelectasis within the right lung. Atherosclerosis. Electronically Signed: Salma Ortega MD at 17:56 EDT Tel , Service support , Medical Necessity - Tobacco Use Smoking Status: Former smoker Assessment/Plan All Active Problems UTI (urinary tract infection) (Acute) Metabolic encephalopathy (Acute) Acute CVA (cerebrovascular accident) (Resolved) Dehydration (Resolved) Fracture, humerus closed (Resolved) Gastroenteritis (Resolved) Hypokalemia (Resolved) This is a 63 years old female patient presented to the emergency room because of confusion and she was found to have acute cystitis, metabolic encephalopathy and hypoxia which is attributed to COPD. #1 acute cystitis: She is on IV ciprofloxacin. Her vital signs stable, afebrile, no leukocytosis. Urine and blood cultures are pending. Plan to continue same treatment. #2 metabolic encephalopathy: Probably due to infection as well as baseline dementia. Today, patient is alert and oriented ?2, knows her full name, date of and place. She is unsure about time. She has no focal deficit on exam. #3 hypoxia: Reportedly, pulse ox was 84% on room air in the ER. Patient denying shortness of breath. She has been on bronchodilators. She does have COPD. Chest x-ray showed no acute findings. CTA chest showed no PE or dissection, showed chronic changes. This morning, pulse ox is 95% on room air. Plan to continue bronchodilators. #4 COPD: Without evidence of acute exacerbation. Continue DuoNeb, albuterol and Pulmicort. #5 hyperlipidemia: Continue statins. #6 non-small cell lung cancer status post chemotherapy and radiation. #7 dementia: Continue donepezil. #8 chronic dysphagia: Continue nectar thick liquid, soft mechanical diet, aspiration precautions. #9 DVT prophylaxis: Subcu Lovenox. This note was generated with [employer] dictation software. It may contain incorrect words, spelling, and punctuation that were not noted in checking the note before signing. Code Visit Inpatient E&M: 60854 Subs Hosp L2
[2018-05-02] MEDS: Aspirin 81 MG TAB.CHEW PO (08:45)
[2018-05-02] MEDS: Ciprofloxacin 400 MG/200 ML BAG 200 MG IV (10:30)
[2018-05-02] MEDS: Enoxaparin 40 MG/0.4 ML Syringe SC (10:31)
[2018-05-02] MEDS: Oxybutynin 5 MG Tablet PO (10:31)
--- NOTE | 2018-05-02 11:30 | CASEMGMT ---
RN CM attempted to complete Face to Face with patient. Patient is confused and unable to answer questions appropriately. RN CM will attempted to call patient's daughter. CM will continue to follow this patient and plan for a safe discharge.
--- NOTE | 2018-05-02 14:30 | CASEMGMT ---
JULIUS AGUIRRE called and spoke with patient's daughter Kiley regarding discharge planning. Daughter states that patient lives with her in there 2 story house with bed and bath on first floor. Daughter states that patient has shower chair, walker, wheelchair, and stair lift to enter the home. Daughte states that patient goes [facility] during the day. Daughter states that patient is requiring more assistance at home. JULIUS AGUIRRE reviewed therapy notes and they are recommending that patient can return home. Disposition Plan: Patient to discharge home with family support and follow-up plans in place.
[2018-05-02] MEDS: Nystatin/Triamcin Cream Tube 1 APPLIC TOPICAL ×2 (15:59→21:30)
[2018-05-02] MEDS: Donepezil HCl 10 MG Tablet PO (21:28)
[2018-05-02] MEDS: Pravastatin 40 MG Tablet PO (21:28)
[2018-05-02] MEDS: Ciprofloxacin 500 MG Tablet PO (21:28)
[2018-05-02] MEDS: Latanoprost 0.005% 1 Bottle 1 DRP EACH EYE (21:29)
[2018-05-03 04:10] VITALS: BP 156/94; PULSE 82; RESP 18; TEMP 36.3; O2SAT 95
[2018-05-03 07:24] VITALS: BP 152/92; PULSE 80; RESP 18; TEMP 35.8; O2SAT 94
[2018-05-03] MEDS: Ipratropium/Albuterol Sulfate 3 ML AMPUL.NEB INHALATION (08:03)
[2018-05-03 08:04] VITALS: PULSE 80; RESP 18; O2SAT 91
[2018-05-03] MEDS: Budesonide Respules 0.5 MG/2 ML AMPUL.NEB. INHALATION (08:04)
[2018-05-03] MEDS: Aspirin 81 MG TAB.CHEW PO (08:40)
[2018-05-03 09:43] LABS: Vitamin B12 400 pg/mL (211-911); Vitamin D,25 Hydroxy 19.6 ng/mL (29.95-100.01)
--- NOTE | 2018-05-03 10:45 | DCINST_ITS ---
- Discharge Diagnoses Current Active Problems: Current Active and Chronic Problems UTI (urinary tract infection) (Acute) Metabolic encephalopathy (Acute) You will use the following diet at home:: Regular Your food should be the consistency of: Regular Discharge Activity: Return to Normal Activity Weight Bearing Status: Weight bearing as tolerated Call your doctor if you observe: Fever of 101 or Higher, Shortness of breath, Dizziness, Fainting spells, Chest pain, Increased palpitations (irregular heartbeat), Uncontrolled pain Allergies/Adverse Reactions: Allergies adhesive tape Allergy (Verified 05/01/18 14:42) Rash Penicillins Allergy (Verified 05/01/18 14:42) Rash codeine Adverse Reaction (Verified 05/01/18 19:39) Nausea Medications to take at Discharge Aspirin 81 mg PO DAILY 10/02/17 Donepezil HCl 10 mg PO QHS 10/02/17 Fluticasone/Vilanterol [Breo Ellipta 200-25 Mcg INH] 1 each IH DAILY 10/02/17 Latanoprost 0.005% [Xalatan Opthalmic] 1 drop EACH EYE QHS 10/02/17 Oxybutynin Chloride [Ditropan Xl] 5 mg PO DAILY 10/02/17 Pravastatin Sodium 40 mg PO DAILY 10/02/17 Potassium Chloride [Klor-Con M20] 20 meq PO BID 05/01/18 Ciprofloxacin [Cipro] 500 mg PO BID #14 tab 05/03/18 The following prescriptions were given: Ciprofloxacin [Cipro] 500 mg PO BID #14 tab Primary Care Physician: Luis A Velasquez MD [Primary Care Provider] - Please follow up with your Primary Care Physician in: 1-2 weeks. Test Results: Test results from this visit will be discussed in further detail at your follow- up appointment, if applicable.
[2018-05-03] MEDS: Oxybutynin 5 MG Tablet PO (10:51)
[2018-05-03] MEDS: Enoxaparin 40 MG/0.4 ML Syringe SC (10:52)
[2018-05-03] MEDS: Ciprofloxacin 500 MG Tablet PO (10:52)
[2018-05-03] MEDS: Nystatin/Triamcin Cream Tube 1 APPLIC TOPICAL (10:53)
[2018-05-03 11:46] VITALS: BP 125/77; PULSE 79; RESP 18; TEMP 36.2; O2SAT 95
--- NOTE | 2018-05-03 13:21 | PCM.DC.SUM ---
Discharge Date and Diagnosis Date of Admission: 05/01/18 Date of Discharge: 05/03/18 - Primary Discharge Diagnosis #1 Klebsiella pneumonia acute cystitis. #2 metabolic encephalopathy. #3 transient hypoxia. - Secondary Discharge Diagnosis Chronic Problems Dysphagia (Chronic) Failure to thrive in adult (Chronic) Hyperlipidemia (Chronic) Overactive bladder (Chronic) Glaucoma (Chronic) COPD (chronic obstructive pulmonary disease) (Chronic) Non-small cell lung cancer (Chronic) treated by chemo and radiation considered cured.....had mets to the brain and the brain was irradiated Cerebral microvascular disease (Chronic) severe Dementia, vascular (Chronic) Obesity (Chronic) Nodule of right lung (Chronic) stable Hospital Course and Treatment Imaging Results: Clinical Impression(s) from Imaging Studies Chest X-Ray 05/01/18 15:33 IMPRESSION: Indeterminate retrocardiac opacity, may be secondary to a confluence of shadows however cannot exclude an underlying pulmonary nodule and/or consolidation, consider CT for further characterization. Electronically Signed: Salma Ortega MD at 16:26 EDT Tel , Service support , Chest CTA 05/01/18 16:57 IMPRESSION: No demonstrated pulmonary embolism or arterial dissection. No new focal consolidation. Stable scarring and/or atelectasis within the right lung. Atherosclerosis. Electronically Signed: Salma Ortega MD at 17:56 EDT Tel , Service support , Operations: None Procedures: None Summary of Care Provided: Patient seen and examined on the day of discharge and appeared to be stable to be discharged home. She was sitting on her chair, eating this morning and she denied any significant complaints. Her vital signs were stable. - Physical Exam General: Alert, Oriented x2, Cooperative, No apparent distress. HEENT: Atraumatic, PERRLA, EOMI. Neck: Supple, No JVD, Negative Carotid Bruits, Trachea Midline, Thyroid Normal. Lungs: Clear to auscultation, Normal air movement, No rhonchi, No wheeze, No rales. Cardiovascular: Regular rate, Regular Rhythm, Normal S1, Normal S2, PMI Normal. Abdomen: Bowel Sounds Present, Soft, Non Tender, Non-Distended, No Hepato-splenomegaly. Extremities: No clubbing, No cyanosis, No edema Skin: No rashes, No breakdown Neurological: Neuro grossly intact Vital Signs are stable. Hospital course: The patient is a 63 year old F admitted because of confusion she was found to have acute cystitis complicated by metabolic encephalopathy. Also, she was hypoxic in the emergency room but her pulse ox has been stable since admission. There was no evidence of acute COPD exacerbation. Chest x-ray performed on admission and revealed probable retrocardiac opacity which could be due to pulmonary nodule or consolidation. CTA chest done and revealed no evidence of PE or dissection, no focal consolidation or masses. Pneumonia ruled out. She was treated with IV ciprofloxacin. Patient has history of dementia and she is disoriented at baseline, oriented to self and place but not to time. Her baseline mental status returned back to her baseline after treatment. She has no focal deficit. Her routine blood work was remarkable for mild hypokalemia, potassium was replaced and corrected. Urine culture revealed Klebsiella pneumonia. Blood culture showed no growth up to date of discharge. Patient discharged home in a stable medical condition, discharged on ciprofloxacin twice daily for 7 days of treatment, continued on her chronic home medications without any changes, recommended follow-up with PCP in 1-2 weeks. Patient was evaluated by PT OT and stated that she can go home and no need for placement to snf facility. Discharge Activity: Return to Normal Activity Weight Bearing Status: Weight bearing as tolerated Call your doctor if you observe: Fever of 101 or Higher, Shortness of breath, Dizziness, Fainting spells, Chest pain, Increased palpitations (irregular heartbeat), Uncontrolled pain Home Medications: Medications to take at Discharge Aspirin 81 mg PO DAILY 10/02/17 Donepezil HCl 10 mg PO QHS 10/02/17 Fluticasone/Vilanterol [Breo Ellipta 200-25 Mcg INH] 1 each IH DAILY 10/02/17 Latanoprost 0.005% [Xalatan Opthalmic] 1 drop EACH EYE QHS 10/02/17 Oxybutynin Chloride [Ditropan Xl] 5 mg PO DAILY 10/02/17 Pravastatin Sodium 40 mg PO DAILY 10/02/17 Potassium Chloride [Klor-Con M20] 20 meq PO BID 05/01/18 Ciprofloxacin [Cipro] 500 mg PO BID #14 tab 05/03/18 Following Prescrptions Were Given to Patient: Ciprofloxacin [Cipro] 500 mg PO BID #14 tab Primary Care Physician: Luis A Green MD [Primary Care Provider] - Please follow up with your Primary Care Physician in: 1-2 weeks. Please Follow Up With: SHEEBA GREEN Disposition: Home Minutes spent on discharge:: 31 Patient Condition:: Stable Medical Necessity - Tobacco Use Smoking Status: Former smoker Tobacco Use: Non-smoker Meaningful Use Info Meaningful Use Diagnoses (Choose all that apply): None applicable Code Visit Inpatient E&M: 53761 Disch Hosp
--- NOTE | 2018-05-03 13:26 | DS.PCM_ITS ---
Discharge Date and Diagnosis Date of Admission: 05/01/18 Date of Discharge: 05/03/18 - Primary Discharge Diagnosis #1 Klebsiella pneumonia acute cystitis. #2 metabolic encephalopathy. #3 transient hypoxia. - Secondary Discharge Diagnosis Chronic Problems Dysphagia (Chronic) Failure to thrive in adult (Chronic) Hyperlipidemia (Chronic) Overactive bladder (Chronic) Glaucoma (Chronic) COPD (chronic obstructive pulmonary disease) (Chronic) Non-small cell lung cancer (Chronic) treated by chemo and radiation considered cured.....had mets to the brain and the brain was irradiated Cerebral microvascular disease (Chronic) severe Dementia, vascular (Chronic) Obesity (Chronic) Nodule of right lung (Chronic) stable Hospital Course and Treatment Imaging Results: Clinical Impression(s) from Imaging Studies Chest X-Ray 05/01/18 15:33 IMPRESSION: Indeterminate retrocardiac opacity, may be secondary to a confluence of shadows however cannot exclude an underlying pulmonary nodule and/or consolidation, consider CT for further characterization. Electronically Signed: Salma Ortega MD at 16:26 EDT Tel , Service support , Chest CTA 05/01/18 16:57 IMPRESSION: No demonstrated pulmonary embolism or arterial dissection. No new focal consolidation. Stable scarring and/or atelectasis within the right lung. Atherosclerosis. Electronically Signed: Salma Ortega MD at 17:56 EDT Tel , Service support , Operations: None Procedures: None Summary of Care Provided: Patient seen and examined on the day of discharge and appeared to be stable to be discharged home. She was sitting on her chair, eating this morning and she denied any significant complaints. Her vital signs were stable. - Physical Exam General: Alert, Oriented x2, Cooperative, No apparent distress. HEENT: Atraumatic, PERRLA, EOMI. Neck: Supple, No JVD, Negative Carotid Bruits, Trachea Midline, Thyroid Normal. Lungs: Clear to auscultation, Normal air movement, No rhonchi, No wheeze, No rales. Cardiovascular: Regular rate, Regular Rhythm, Normal S1, Normal S2, PMI Normal. Abdomen: Bowel Sounds Present, Soft, Non Tender, Non-Distended, No Hepato- splenomegaly. Extremities: No clubbing, No cyanosis, No edema Skin: No rashes, No breakdown Neurological: Neuro grossly intact Vital Signs are stable. Hospital course: The patient is a 63 year old F admitted because of confusion she was found to have acute cystitis complicated by metabolic encephalopathy. Also, she was hypoxic in the emergency room but her pulse ox has been stable since admission. There was no evidence of acute COPD exacerbation. Chest x-ray performed on admission and revealed probable retrocardiac opacity which could be due to pulmonary nodule or consolidation. CTA chest done and revealed no evidence of PE or dissection, no focal consolidation or masses. Pneumonia ruled out. She was treated with IV ciprofloxacin. Patient has history of dementia and she is disoriented at baseline, oriented to self and place but not to time. Her baseline mental status returned back to her baseline after treatment. She has no focal deficit. Her routine blood work was remarkable for mild hypokalemia, potassium was replaced and corrected. Urine culture revealed Klebsiella pneumonia. Blood culture showed no growth up to date of discharge. Patient discharged home in a stable medical condition, discharged on ciprofloxacin twice daily for 7 days of treatment, continued on her chronic home medications without any changes, recommended follow-up with PCP in 1-2 weeks. Patient was evaluated by PT OT and stated that she can go home and no need for placement to senior living facility. Discharge Activity: Return to Normal Activity Weight Bearing Status: Weight bearing as tolerated Call your doctor if you observe: Fever of 101 or Higher, Shortness of breath, Dizziness, Fainting spells, Chest pain, Increased palpitations (irregular heartbeat), Uncontrolled pain Home Medications: Medications to take at Discharge Aspirin 81 mg PO DAILY 10/02/17 Donepezil HCl 10 mg PO QHS 10/02/17 Fluticasone/Vilanterol [Breo Ellipta 200-25 Mcg INH] 1 each IH DAILY 10/02/17 Latanoprost 0.005% [Xalatan Opthalmic] 1 drop EACH EYE QHS 10/02/17 Oxybutynin Chloride [Ditropan Xl] 5 mg PO DAILY 10/02/17 Pravastatin Sodium 40 mg PO DAILY 10/02/17 Potassium Chloride [Klor-Con M20] 20 meq PO BID 05/01/18 Ciprofloxacin [Cipro] 500 mg PO BID #14 tab 05/03/18 Following Prescrptions Were Given to Patient: Ciprofloxacin [Cipro] 500 mg PO BID #14 tab Primary Care Physician: Luis A Green MD [Primary Care Provider] - Please follow up with your Primary Care Physician in: 1-2 weeks. Please Follow Up With: SHEEBA GREEN Disposition: Home Minutes spent on discharge:: 31 Patient Condition:: Stable Medical Necessity - Tobacco Use Smoking Status: Former smoker Tobacco Use: Non-smoker Meaningful Use Info Meaningful Use Diagnoses (Choose all that apply): None applicable Code Visit Inpatient E&M: 89997 Disch Hosp
--- NOTE | 2018-05-05 15:57 | CASEMGMT ---
JULIUS AGUIRRE Discharge Follow-up Phone Call: VEGA: Elizabeth Strata: 3 Call Date: 05/05/18 Discharge Date: 05/03/18 Time of Call: 1558 Duration: 1 min Admitting Diagnosis: Acute Hypoxic respiratory failure JULIUS AGUIRRE attempted for complete follow-up phone call after recent hospitalization. No answer, voice message left with return contact information. Patient has follow-up appt scheduled with Eva on 05/10/18.
== END 2018-05-03 12:53 | disposition home or self-care (01) | DRG 689 ==
LOC: ED 15:17 → MS3 19:42
PROVIDERS: Emergency Provider Emergency Medicine; Family Provider Family Medicine; PCP Family Medicine; Visit Provider Hospitalist
DX: N30.00 Acute cystitis without hematuria (principal); G93.41 Metabolic encephalopathy; B96.1 Klebsiella pneumoniae [K. pneumoniae] as the cause of diseases classified elsewhere; R09.02 Hypoxemia; F03.90 Unspecified dementia, unspecified severity, without behavioral disturbance, psychotic disturbance, mood disturbance, and anxiety; E87.6 Hypokalemia; J44.9 Chronic obstructive pulmonary disease, unspecified; R13.10 Dysphagia, unspecified; E78.5 Hyperlipidemia, unspecified; Z87.891 Personal history of nicotine dependence; Z66 Do not resuscitate; Z79.899 Other long term (current) drug therapy
CPT/HCPCS: 36415; 71046; 71275; 80048; 80053; 81001; 82306; 82607; 82746; 83605; 84443; 84484; 85025; 87040; 87077; 87086; 87088; 87186; 94640; 97162; 97166; 97530; 97802; 99283; J7050; Q9967; A4216; G8978; G8979; G8987; G8988; J0744

== ENCOUNTER 2018-05-29 14:04 | Emergency (ER) | payer MEDICARE, MEDICAID, SELFPAY ==
[2018-05-29 14:06] VITALS: BP 120/72; PULSE 103; RESP 24; TEMP 36.6; O2SAT 88; BMI 36.2
--- NOTE | 2018-05-29 16:05 | ED.VISSUMM ---
- ER Visit Summary Date of Service: 05/29/18 Chief Complaint: Bilateral knee and leg pain History of Present Illness: The patient is a 63 F who presents with bilateral knee and leg pain that began after a fall this morning. Patient states she got out of her wheelchair to go to the bathroom when she fell. Patient states she landed on her knees. Patient denies any head injury or loss of consciousness. Patient admits to some chronic weakness of her lower legs. Patient states her pain is constant. Patient states nothing seems to make it better or worse. Physical Examination: Vital signs are stable. Patient is afebrile. Patient is in no acute distress. Musculoskeletal exam reveals tenderness over the anterior knees bilaterally. There is no effusion noted. There is no edema or ecchymosis. There is no bony crepitance or step-off. There is no pain with manipulation of the patella. There is also some mild tenderness over the anterior lower legs. Again there is no deformity. There is no edema or ecchymosis. Pedal pulses are equal bilaterally. There are no sensory deficits noted. The remaining physical exam is within normal limits. Test Results: X-rays of the knees were obtained. There is no acute fracture. Emergency Department Course and Treatment: Patient felt better on reevaluation. Patient was instructed to follow-up with her primary care physician in 5-7 days. Patient understood and was agreeable with the plan. All questions were answered. Disposition: Discharge home Impression: Bilateral knee contusions This note was generated with [employer] dictation software. It may contain incorrect words, spelling, and punctuation that were not noted in review of the chart prior to signing ED Disposition - Plan for ED Patient: Disposition: Home or Assisted Living Chief Complaint: Lower Extremity Injury Diagnosis: Contusion of knee Instructions: ED Contusion Lower Ext Referrals: Luis A Velasquez MD [Primary Care Provider] -
[2018-05-29 16:11] VITALS: BP 108/83; BP 108/84; PULSE 94; RESP 18; O2SAT 96
--- NOTE | 2018-05-29 16:35 | ED.RN ---
THIS NURSE TALKED TO PATIENTS DAUGHTER ON THE PHONE AFTER PATIENT WAS ALREADY UP FOR D/C. THIS NURSE EXPLAINED TO THE PATIENTS DAUGHTER THAT THE PT WAS UP FOR D/C AND THAT SHE NEEDED A RIDE HOME. THE DAUGHTER ASKED IF EVERYTHING WAS OKAY WITH THE PATIENT AND THIS NURSE EXPLAINED THAT WE DID AN XRAY OF HER KNEE AND SHE JUST HAS A KNEE CONTUSION. THE DAUGHTER STATED THAT SHE WAS SUPPOSED TO BE THERE FOR CONFUSION AND NOT HER KNEE AND ASKED IF WE CHECKED HER URINE. THIS NURSE TOLD THE DAUGHTER THAT THE ONLY COMPLAINT THE PATIENT HAD WAS HER KNEE AND THAT IS THE ONLY COMPLAINT THAT HER BOYFRIEND, WHO HAD DROPPED HER OFF, STATED SHE WAS HERE FOR. THIS NURSE THEN WENT AND TALKED TO DOCTOR FAVIO STATED THAT THE PATIENT ANSWERED ALL HIS QUESTIONED AND DID NOT SEEM CONFUSED. THE PATIENT WAS D/C TO HOME WITH HER BOYFRIEND
== END 2018-05-29 16:35 | disposition home or self-care (01) ==
PROVIDERS: Emergency Provider Emergency Medicine; Family Provider Family Medicine; PCP Family Medicine
DX: S80.02XA Contusion of left knee, initial encounter (principal); S80.01XA Contusion of right knee, initial encounter; Z79.82 Long term (current) use of aspirin; Z79.2 Long term (current) use of antibiotics; Z79.899 Other long term (current) drug therapy; W05.0XXA Fall from non-moving wheelchair, initial encounter; Y93.89 Activity, other specified; Y92.002 Bathroom of unspecified non-institutional (private) residence as the place of occurrence of the external cause; Y99.8 Other external cause status
CPT/HCPCS: 73562; 99282

== ENCOUNTER 2018-11-17 09:34 | Emergency (ER) | payer MEDICARE, MEDICAID, SELFPAY ==
[2018-11-17 09:38] VITALS: BP 142/81; PULSE 79; RESP 16; TEMP 36.9; O2SAT 96; BMI 34.3
--- NOTE | 2018-11-17 09:43 | ED.VIS.GEN ---
History of Present Illness Chief Complaint: Weakness Detail of Chief Complaint: Limited Informant: Patient, Family, [employer] [place] Limited by: - - Patient does not know who called EMS. She states she was at her boyfriend's house last evening. Details are vague and limited since patient is not able to voice much Onset: Today Context: Sudden Onset Timing: - - Unknown Quality: Pain anterior mid left leg status post fall Location: Left leg Current Severity: Mild Maximum Severity: Moderate Worsened by: Movement, weightbearing and palpation Relieved by: Nothing Associated Symptoms: Nothing per patient Narrative: Patient reports she fell and was unable to rise from the floor. History is limited for multiple reasons. She informed me that she stayed at her boyfriend's house yesterday. She fell at her house. To her knowledge she denies head trauma. She denies headache. She denies visual, ocular auditory symptoms. She has neck pain. She denies paresthesia, anesthesia or motor weakness. Her only complaint is left leg pain. Past Medical History - Allergies and Home Meds Allergies/Adverse Reactions: Allergies adhesive tape Allergy (Verified 11/17/18 09:47) Rash Penicillins Allergy (Verified 11/17/18 09:47) Rash codeine Adverse Reaction (Verified 11/17/18 09:47) Nausea Primary Care Physician: Luis A Velasquez MD [Primary Care Provider] - Prior records reviewed: Yes Past Medical History: - - Frequent urinary tract infections, metabolic encephalopathy, failure to thrive, non-small cell lung CA, COPD, microvascular cerebrovascular accident, dementia, dysphasia, glaucoma Surgical History: cholecystectomy, hysterectomy, - - port for chemo, possible resection of lung in 2001 when diagnosed with non small cell lung CA Lives: Alone, - - Daughter who is the POA called to give information. [employer] states no one was available to speak with the daughter. Smoking Status: Former smoker Alcohol: None Drugs: None - Family History Maternal Family History: Family History (Last Updated 05/01/18 @ 19:35 by Trevor Nguyen DO) Other COPD (chronic obstructive pulmonary disease) Family History: Reports: Unknown - Patient unable to provide family health information. Paternal Family History: Family History (Last Updated 05/01/18 @ 19:35 by Trevor Nguyen DO) Other COPD (chronic obstructive pulmonary disease) Family History: Reports: No pertinent history - Patient unable to provide family health information. Review of Systems General: Denies: Chills, Fever, Malaise, Sweats Eyes: Denies: Visual changes - bilaterally, Blurred vision - right, Diplopia ENT: Denies: Bilateral ear pain, Rhinorrhea, Sore throat Cardiovascular: Denies: Chest pain, Palpitations Respiratory: Denies: Dyspnea, Cough, Dyspnea on exertion, Orthopnea, Paroxysmal nocturnal dyspnea Gastrointestinal: Denies: Abdominal pain, Nausea, Vomiting, Diarrhea, Melena, Hematochezia Genitourinary: Denies: Dysuria, Hematuria, Frequency Musculoskeletal: Reports: Extremity Pain - Pain mid left leg over the tibia and fibula.. Denies: Myalgias, Arthralgias, Back pain Skin: Denies: Rash, Wounds Neurological: Denies: Headache, Weakness, Parasthesia, Numbness Endocrine: Denies: Polyuria, Polydipsia Hematologic: Denies: Easy bruising, Easy bleeding Physical Exam Vital Signs/Narrative: Vital Signs Temp Pulse Resp BP Pulse Ox 11/17/18 09:38 98.4 F 79 16 142/81 H 96 Inital Vital Signs reviewed: Yes General: Well nourished, Well developed, Obese, Unkempt, No Acute Distress, - - There is stains from last evening's dinner. Head: Normocephalic, Atraumatic, - - There is no clinical finding of basilar skull fracture. Negative for: Tenderness Eyes: Perrl, EOMI, - - There is no subconjunctival hemorrhage.. Negative for: Pale conjunctiva, Scleral icterus ENT: Moist mucous membranes, No rhinorrhea, TM's clear, Sinus tenderness Neck: Supple, Nontender. Negative for: No lymphadenopathy, No JVD Cardiovascular: Regular rate, Regular rhythm, No murmurs, Normal S1, Normal S2 Respiratory: No distress, CTA bilaterally, Chest nontender Abdomen: Soft, Nontender, Nondistended, Normal bowel sounds, No masses. Negative for: Hepatomegaly, Splenomegaly Rectal: Deferred Back: Nontender, Normal Inspection. Negative for: Spinal tenderness Extremities: Tenderness, Edema - 1-2+ pitting edema, - - Tenderness mid left leg as previously described. Negative for: Calf Tenderness Neurological: Alert, Oriented x3, Cranial nerves II-XII grossly intact, Normal Strength, Normal Sensation, Normal DTR, - - Patient speech is slightly garbled. She states that is her normal voice.. Negative for: Disoriented Psychological: Normal affect Diagnostic/Tx/Re-eval CBC, basic metabolic panel and UA are unremarkable. 2 view x-ray of the left tibia and fibula revealed no fracture, foreign body per my independent interpretation - Medical Decision Making With history of fall complaining of left leg pain and unable to ambulate will obtain x-ray of the left tib-fib. Because squad was concerned regarding patient's well-being and health history is limited will obtain CBC, BMP and cath UA to evaluate for metabolic/infectious causes. Patient was able to ambulate. Daughter did present. Nurse informed her of findings. She was asked if she would like to speak with me. Apparently she did not and left. ED Disposition - Plan for ED Patient: Disposition: Home or Assisted Living Diagnosis: Contusion of left lower leg, initial encounter, Dementia Instructions: ED Weakness UKO, ED Contusion Lower Ext Referrals: Luis A Velasquez MD [Primary Care Provider] - 1 Week if not improving
[2018-11-17 10:07] LABS: Mucous, Urine 0 SEEN /hpf (<or=2+)
--- NOTE | 2018-11-17 10:07 | ED.RN ---
PT WAS INCONTINENT OF STOOL. PT WAS CLEANED UP, STRAIGHT CATH PERFORMED AND URINE OBTAINED. PURE WICK PLACED AND PT RESTING COMFORTABLY AT THIS TIME.
[2018-11-17 10:11] LABS: Color, Urine Yellow (Yellow); Glucose, Dipstick Normal (Normal); Ketone-Dipstick Negative (Negative); Leukocyte Esterase-Dipstick 25 /ul (Negative); Nitrite-Dipstick Negative (Negative); Occult Blood-Urine 10 /ul (Negative); Protein-Dipstick Negative (Negative); Urine Bilirubin Dipstick Negative (Negative); Urine Clarity Sl. Cloudy (Clear); Urine Urobilinogen Normal (Normal)
[2018-11-17 10:13] LABS: Absolute Lymphocyte Count 1.06 X10^3/ul (0.83-4.51); Absolute Neutrophil Count 7.1 X10^3/uL (2.0-7.7); Basophil# 0.02 X10^3/uL; Basophil% 0.2 % (0-1); Eosinophil# 0.07 X10^3/uL; Eosinophils% 0.8 % (0-5); Hematocrit 44.5 % (37-47); Hemoglobin 14.2 g/dl (12.0-15.0); Lymphocyte # 1.06 X10^3/ul (4.0); Lymphocyte % 11.8 % (19-41); Mean Corp Hgb Conc 31.9 g/gl (32-36); Mean Corpuscular Hgb 29.1 pg (27.0-32.0); Mean Corpuscular Volume 91.2 fL (81-99); Mean Platelet Vol. 10.6 fl (6.2-12.0); Monocyte# 0.71 X10^3/uL; Monocyte% 7.9 % (0-10); Neutrophil # 7.14 X10^3/uL (2.7-7.7); Neutrophil % 79.1 % (47-70); Platelet Count 185 K/mm3 (150-450); RBC Distribution Width CV 13.4 % (11.6-14.6); RBC Distribution Width SD 43.9 fl (35.1-43.9); Red Blood Count 4.88 M/mm3 (4.2-5.4)
--- NOTE | 2018-11-17 10:15 | RAD_ITS ---
STUDY: X-RAY - LEFT TIBIA AND FIBULA REASON FOR EXAM: Female, 63 years old. Pain following a fall. Inability to bear weight. TECHNIQUE: 2 view(s) of the tibia and fibula were obtained. COMPARISON: None. FINDINGS: Normal visualized tibia. Normal visualized fibula. The soft tissue structures are unremarkable. RAD/Tibia & Fibula 2 Views IMPRESSION: Normal x-ray examination of the tibia and fibula. Electronically Signed: Ming Baig MD at 10:39 EST , Service support ,
[2018-11-17 10:18] LABS: Bacteria RARE /hpf (None Seen); POSITIVE COUNT NO; POSITIVE DIFFERENTIAL NO; POSITIVE MORPHOLOGY NO; Red Blood Cells-Urine 0-5 SEEN /hpf (0-5); Squamous Epithelial Cells - UA 5-10 SEEN /hpf (5-10); White Blood Cells 0-5 SEEN /hpf (0-5)
[2018-11-17 10:25] LABS: Anion Gap 6 (5-15); BUN 11 mg/dL (7-18); BUN/Creat Ratio 14.6 RATIO (10-20); Calcium,Total 8.4 mg/dL (8.5-10.1); Chloride 107 mmol/L (98-107); Creatinine, Serum 0.75 mg/dL (0.55-1.02); EST Glomerular Filtration Rate 83 mL/min (>60); Est Glom Filt Rate - Afr Amer 101 mL/min (>60); Glucose 90 mg/dL (74-106); Potassium 4.1 mmol/L (3.5-5.1); Sodium Level 141 mmol/L (136-145)
[2018-11-17 11:45] VITALS: BP 149/87; PULSE 68; RESP 15; O2SAT 95
--- NOTE | 2018-11-17 12:37 | ED.RN ---
DISCHARGE INSTRUCTIONS GIVEN TO AND REVIEWED WITH FACILITY STAFF, NO S/S OF DISTRESS NOTED, PT TO PRIVATE VEHICLE VIA WHEELCHAIR.
== END 2018-11-17 12:38 | disposition home or self-care (01) ==
PROVIDERS: Emergency Provider Emergency Medicine; Family Provider Family Medicine; PCP Family Medicine
DX: S80.12XA Contusion of left lower leg, initial encounter (principal); E66.9 Obesity, unspecified; F03.90 Unspecified dementia, unspecified severity, without behavioral disturbance, psychotic disturbance, mood disturbance, and anxiety; R62.7 Adult failure to thrive; J44.9 Chronic obstructive pulmonary disease, unspecified; Z87.891 Personal history of nicotine dependence; Z87.440 Personal history of urinary (tract) infections; Z85.118 Personal history of other malignant neoplasm of bronchus and lung; Z86.73 Personal history of transient ischemic attack (TIA), and cerebral infarction without residual deficits; Z79.82 Long term (current) use of aspirin; Z79.51 Long term (current) use of inhaled steroids; Z79.2 Long term (current) use of antibiotics; Z79.899 Other long term (current) drug therapy; W18.30XA Fall on same level, unspecified, initial encounter; Y93.89 Activity, other specified; Y92.009 Unspecified place in unspecified non-institutional (private) residence as the place of occurrence of the external cause; Y99.8 Other external cause status
CPT/HCPCS: 73590; 80048; 81001; 85025; 99285; P9612; A4216

== ENCOUNTER 2018-12-10 15:48 | Emergency (ER) | payer MEDICARE, SELFPAY ==
[2018-12-10 15:49] VITALS: BP 127/68; PULSE 83; RESP 21; TEMP 36.6; O2SAT 94; BMI 33.4
--- NOTE | 2018-12-10 16:11 | RAD_ITS ---
STUDY: X-RAY CHEST REASON FOR EXAM: Female, 63 years old. Cough and congestion. Short of breath and lung cancer. TECHNIQUE: Frontal and lateral views of the chest. COMPARISON: 05/01/2018. FINDINGS: The lungs are hyperexpanded. There are coarsened interstitial markings suggestive of mild chronic fibrosis. No gross focal infiltrates. No gross effusions. Normal size heart. Normal mediastinum and emili. There is prominence of the pulmonary hilar arteries without peripheral pulmonary vascular congestion, suggesting pulmonary hypertension. Normal visualized aortic arch and descending thoracic aorta. Normal visualized thoracic spine. Normal visualized ribs, clavicles, and shoulders. There is no demonstrated abnormality of the visualized soft tissue structures of the upper abdomen. RAD/Chest PA and Lateral IMPRESSION: Probable COPD with some mild fibrotic changes and no definite acute chest disease. Electronically Signed: Miles Escobar MD at 17:47 EDT , Service support ,
[2018-12-10 16:44] LABS: Absolute Neutrophil Count 4.7 X10^3/uL (2.0-7.7); Basophil# 0.02 X10^3/uL; Basophil% 0.3 % (0-1); Eosinophil# 0.09 X10^3/uL; Eosinophils% 1.3 % (0-5); Hematocrit 44.5 % (37-47); Lymphocyte % 22.2 % (19-41); Mean Corp Hgb Conc 31.5 g/gl (32-36); Mean Corpuscular Hgb 28.7 pg (27.0-32.0); Mean Corpuscular Volume 91.2 fL (81-99); Mean Platelet Vol. 10.9 fl (6.2-12.0); Monocyte# 0.79 X10^3/uL; Neutrophil # 4.69 X10^3/uL (2.7-7.7); Neutrophil % 65.1 % (47-70); Platelet Count 236 K/mm3 (150-450); RBC Distribution Width CV 13.7 % (11.6-14.6); RBC Distribution Width SD 45.6 fl (35.1-43.9); Red Blood Count 4.88 M/mm3 (4.2-5.4); White Blood Count 7.2 K/mm3 (4.4-11.0)
[2018-12-10 16:48] LABS: POSITIVE COUNT NO; POSITIVE DIFFERENTIAL NO; POSITIVE MORPHOLOGY NO
--- NOTE | 2018-12-10 17:17 | ED.DCSUM_ITS ---
- ER Visit Summary Date of Service: 12/10/18 Chief Complaint: Upper respiratory symptoms History of Present Illness: The patient is a 63 F who presents with cough and congestion over the past 2 weeks. She is also had some subjective dyspnea over the past 3-4 days. She denies any fever or chills. She has a sore throat rhinorrhea she has no neck pain or rash. She does not have a headache. She also has chronic recurrent pain in bilateral feet that has been there for a few years. She wants this pain to be addressed today. Physical Examination: Patient does not appear toxic, she has unremarkable vitals, she has upper airway congestion rhinorrhea and swollen nasal turbinates. She has bilateral frontal sinus tenderness. She has a supple neck. Is clear lungs bilaterally she has a soft abdomen. Her lower extremity exam shows normal skin exam, no erythema or calor or signs of cellulitis. There is normal PT and DP pulses and capillary refill of less than 2 seconds. Emergency Department Course and Treatment: Patient has an unremarkable workup, she does have objective upper airway congestion, sinus tenderness. This is been ongoing for 2 weeks thus meets CDC criteria for treatment with antibiotics Disposition: Discharge stable condition Impression: Upper respiratory infection This note was generated with [employer] dictation software. It may contain incorrect words, spelling, and punctuation that were not noted in review of the chart prior to signing ED Disposition - Plan for ED Patient: Disposition: Home or Assisted Living Instructions: Acute Sinusitis Prescriptions: Azithromycin 250 mg PO DAILY #6 tab Referrals: Luis A Velasquez MD [Primary Care Provider] -
[2018-12-10 17:20] LABS: ALB/GLOB Ratio 0.9 RATIO (0.9-2.4); AST(SGOT) 38 U/L (15-37); Alanine Aminotransfer ALT/SGPT 34 U/L (13-56); Albumin, Serum 3.8 g/dL (3.2-5.0); Alkaline Phosphatase 178 U/L (45-117); Anion Gap 3 (5-15); BUN 15 mg/dL (7-18); BUN/Creat Ratio 18.4 RATIO (10-20); Calcium,Total 8.5 mg/dL (8.5-10.1); Chloride 107 mmol/L (98-107); Creatinine, Serum 0.82 mg/dL (0.55-1.02); EST Glomerular Filtration Rate 76 mL/min (>60); Est Glom Filt Rate - Afr Amer 91 mL/min (>60); Estimated Creatinine Clearance 67.45 ml/min; Globulin 4.1 g/dL (2.2-4.2); Glucose 86 mg/dL (74-106); Potassium 3.9 mmol/L (3.5-5.1); Protein, Total 7.9 g/dL (6.4-8.2); Sodium Level 141 mmol/L (136-145)
[2018-12-10 17:51] VITALS: BP 138/74; PULSE 71; RESP 18; TEMP 36.7; O2SAT 96
[2018-12-10 18:05] VITALS: BP 126/77; PULSE 68; RESP 16; O2SAT 92
== END 2018-12-10 18:16 | disposition home or self-care (01) ==
PROVIDERS: Emergency Provider Emergency Medicine; Family Provider Family Medicine; PCP Family Medicine
DX: J06.9 Acute upper respiratory infection, unspecified (principal); J44.9 Chronic obstructive pulmonary disease, unspecified; E78.00 Pure hypercholesterolemia, unspecified; Z85.118 Personal history of other malignant neoplasm of bronchus and lung; Z79.82 Long term (current) use of aspirin; Z79.899 Other long term (current) drug therapy
CPT/HCPCS: 71046; 80053; 84484; 85025; 87804; 99284; A4216